=== PATIENT | male | born 1940 | race Caucasian/White ===

== ENCOUNTER 2017-12-06 09:28 | Observation (INO) ==
[2017-12-06] MEDS ORDERED: Aspirin 81 MG TAB.CHEW PO ONE (09:45)
[2017-12-06] MEDS ORDERED: 0.9 % Sodium Chloride 500 ML IVC ONE ×2 (09:45→11:24)
[2017-12-06] MEDS ORDERED: *HR* Morphine 2 MG/ML SYRINGE IVP ONE ×2 (09:54→10:38)
--- NOTE | 2017-12-06 09:55 | Emergency Department Note ---
Disposition Clinical Impression: Angina at rest, Dizziness, nonspecific Chest pain Qualifiers: Chest pain type: unspecified Qualified Code(s): R07.9 - Chest pain, unspecified Disposition: Admitted As Inpatient Condition: Undetermined Time of Disposition: 17:36 Chest Pain HPI - General Chief Complaint: ED Chest Pain Stated Complaint: CHEST PAIN/MCKEON Time Seen by Provider: 12/06/17 09:45 Source: patient, family Mode of arrival: ambulatory Limitations: no limitations Vital Signs Reviewed: Yes Nursing Notes Reviewed: Yes - History of Present Illness HPI Narrative: Presents with left sided chest pain with radiation up neck that started yesterday that has progressively gotten worse. Pt states was sitting in chair when chest pain started, had not been exerting self. Pain is constant, initiating in Left chest than radiating to left neck/shoulder. Hx of 12 stents, 16 PCIs, CABG x1. Denies recent or current illness. Denies n/v, diaphoresis, increased edema, abdominal bloating, or other ailments. Pt complaint: chest pain Onset (ago): day(s) (1) Duration: constant, gradually worsening Onset: during rest Pain Location: left chest, other (radiating to left shoulder) Severity: moderate Severity scale (1-10): 5 Quality: aching, heaviness, similar to prior AK ("know it is heart") Pain Radiation: LUE, neck Improves with: nothing Worsens with: nothing Context: other (extensive cardiac history) Associated symptoms: Denies: nausea, vomiting, diaphoresis, dyspnea, syncope, palpitations, fever, cough, leg swelling Treatments prior to arrival chest pain: none - Related Data Home Medications Medication Instructions Recorded Confirmed Clopidogrel [Plavix] 75 mg PO QAM 07/23/15 12/06/17 Docusate [Colace] 100 mg PO QAM PRN 07/23/15 12/06/17 Gabapentin [Neurontin] 300 mg PO TID 07/23/15 12/06/17 Multivitamin/Iron/Folic Acid 1 tab PO QAM 07/23/15 12/06/17 [Centrum Complete Multivit Tab] Nitroglycerin [Nitrostat] 0.4 mg SL AD PRN 07/23/15 12/06/17 Pantoprazole Sodium 40 mg PO QAM 07/23/15 12/06/17 Atorvastatin [Lipitor] 40 mg PO HS 05/16/16 12/06/17 Glimepiride [Amaryl] 8 mg PO DAILY 05/16/16 12/06/17 Losartan Potassium [Cozaar] 100 mg PO DAILY 05/16/16 12/06/17 Metformin HCl [Glucophage] 1,000 mg PO BIDWM 05/16/16 12/06/17 Metoprolol Succinate 200 mg PO QAM 05/16/16 12/06/17 Potassium Chloride [K-Tab ER] 10 meq PO DAILY 05/16/16 12/06/17 Lamivudine [Epivir Hbv] 100 mg PO DAILY 12/06/17 12/06/17 Warfarin [Coumadin] 2.5 mg PO MOWEFRSA@1800 12/06/17 12/06/17 Warfarin [Coumadin] 5 mg PO SUTUTH@1800 12/06/17 12/06/17 Previous Rx's Medication Instructions Recorded Isosorbide MONOnitrate (24 HR) 90 mg PO DAILY #30 tab.er.24h 01/01/16 [Imdur] Furosemide [Lasix] 80 mg PO BID #6 tab 02/22/16 amLODIPine [Norvasc] 10 mg PO DAILY #60 tablet 05/18/16 Allergies Allergy/AdvReac Type Severity Reaction Status Date / Time No Known Allergies Allergy Verified 07/23/15 17:25 All systems ED: reviewed and negative except as stated. Review of Systems: As Per HPI Constitutional: Reports: weakness. Denies: fever, chills Cardiovascular: Reports: chest pain, edema. Denies: palpitations, dyspnea on exertion, orthopnea, syncope Respiratory: Denies: cough, wheezes Gastrointestinal: Denies: abdominal pain, nausea, vomiting Chest Pain PMH - Past Medical History Medical history: Reports: cardiomyopathy, coronary artery disease, diabetes, hyperlipidemia, hypertension Surgical history: Reports: angioplasty/stent (12 stents), cataract, coronary bypass (CABG), pacemaker/AICD Psychiatric history: Reports: no psych history - Social History Smoking Status: Never smoker Alcohol use: Reports: none Drug use: Reports: none Physical Exam - General Limitations: no limitations General appearance: alert - Head Head exam: normocephalic - Neck Neck exam: Present: normal inspection, full ROM, trachea midline - Chest Chest inspection: Present: normal inspection, symmetric chest wall rise - Respiratory Respiratory exam: Present: normal lung sounds bilaterally. Absent: respiratory distress, accessory muscle use, prolonged expiratory phase - Cardiovascular Cardiovascular exam: Present: regular rate, normal rhythm, normal heart sounds - Abdominal Exam Abdominal exam: Present: soft, Non-Tender, normal bowel sounds - Extremities Exam Extremities exam: Present: normal inspection, full ROM, normal capillary refill , other (BLE edema 1+) - Neurological Exam Neurological exam: Present: alert, oriented X3, CN II-XII intact, normal gait - Psychiatric Psychiatric exam: Present: normal affect, normal mood - Skin Skin exam: Present: warm, intact, normal color Course Course Narrative: 77 year old male presents to ED with 1 day history of chest pain. Chest pain began while sitting in chair, has progressively gotten worse through night and now presents with left substernal chest pain with radiation to left neck and shoulder, pain has always been constant without aggravating or alleviating factors. Pt with extensive heart history that includes CAD, PCI x 16 with 12 stents, 1 CABG, previous "multiple" AK's. 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 Trujillo at [facility]. Does not take daily aspirin d/t coumadin use. Pt denies diaphoresis n/v/d, abdominal bloating, abdominal complaints, recent or current illness. States "know it's my heart". Pt has had intermittent angina before with self resolution and also has nitro available at home. Previous admissions for dizziness/angina. Pt states this is worse than normal because "it doesn't go away and is getting worse". - Reevaluation(s) Reevaluation #1: Resting quietly in room with family at bedside. States CP is 5/10 on scale. Now complaining of headache to forehead that radiates to back of head particularly on left side. States headache has been intermittent last 2 weeks and had treated with tylenol, pt states along with headache feels light headed and dizzy when standing frequently especially when "headache is bad". States chest pain seems to exacerbate headache as well. Saw PCP during this time who suggested headache be related to new medication for Hep B and was told to increase fluids. Pt with admission in May 2016 at [place] for almost same presentation. Pt asked if symptoms (headache, dizziness) were similiar to last admission which he states they are. Admission documentation felt pt to be vascularly dry causing the headaches and dizziness due to poor po intake as well as lasix use. Time: 10:37 Reevaluation #2: Pt continues to complain of chest pain, nitro effective in making pain go from 8 /10 to 5/10. Continues to rest quietly in room with family at bedside. Pt case discussed with Dr. Rangel for admission to hospitalist services. Pt agrees with admission. Time: 11:40 Vital Signs Temperature 97.6 F 12/06/17 09:34 Pulse Rate 60 12/06/17 09:34 Respiratory Rate 18 12/06/17 09:34 Blood Pressure 132/68 12/06/17 09:34 O2 Sat by Pulse Oximetry 97 12/06/17 09:34 Temperature 97.5 F L 12/06/17 16:41 Pulse Rate 58 12/06/17 16:41 Respiratory Rate 16 12/06/17 16:41 Blood Pressure 160/79 12/06/17 16:41 O2 Sat by Pulse Oximetry 96 12/06/17 16:50 Oxygen Delivery Oxygen Delivery Room Air Chest Pain - MDM Narrative Medical decision making narrative: 77 year old male presents to ED with 1 day history of chest pain. Chest pain began while sitting in chair, has progressively gotten worse through night and now presents with left substernal chest pain with radiation to left neck and shoulder, pain has always been constant without aggravating or alleviating factors. Pt with extensive heart history that includes CAD, PCI x 16 with 12 stents, 1 CABG, previous "multiple" AK's. 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 Trujillo at [facility]. Does not take daily aspirin d/t coumadin use. Pt denies diaphoresis n/v/d, abdominal bloating, abdominal complaints, recent or current illness. States "know it's my heart" Last INR 2.2 per patient a "couple of months ago" PMH includes CAD, HTN, HLD, NIDDM, ischemic cardiomyopathy, HBV. Pt reports CKDIII from PCP not too long ago EKG without ST elevation/depression, electrical pacer reading. Paced rate controlled at 60bpm Differentials at this time: NSTEMI, Unstable Angina. Less likely PE d/t anticoagulation wiht coumadin, systemic illness, no recent illness, AAA- no radiation to back, no history of AAA. Initial labs/testing to be completed the re-evaluate Re-eval Resting quietly in room with family at bedside. States CP is 5/10 on scale. Now complaining of headache to forehead that radiates to back of head particularly on left side. States headache has been intermittent last 2 weeks and had treated with tylenol, pt states along with headache feels light headed and dizzy when standing frequently especially when "headache is bad". States chest pain seems to exacerbate headache as well. Saw PCP during this time who suggested headache be related to new medication for Hep B and was told to increase fluids. Pt with admission in May 2016 at [place] for almost same presentation. Pt asked if symptoms (headache, dizziness) were similiar to last admission which he states they are. Admission documentation felt pt to be vascularly dry causing the headaches and dizziness due to poorer po intake as well as lasix use. Labs from today shows increased Cr with decreased GFR to 30 (previous 60); NA 139, K+ 4.0, glucose 185. Trop negative, BNP 194, Lipase 90, INR 2.5 . Heart score 7. CXR negative. Pt with worsening renal function, continuing chest pain, headache. Plan to admit for CP r/o. Discussed case with Attending Dr. Osborne who had 1:1 face time with patient, agrees with POC. - Differential Diagnosis Likely: unstable angina pectoris, atypical chest pain, st elevation myocardial infraction - Medical Records Medical records reviewed: Yes I reviewed the patient's medical records. - Lab Data Lab results reviewed: Yes I reviewed the patient's lab results. Result diagrams: 12/06/17 09:54 12/06/17 09:54 Lab Results 12/06/17 12/06/17 12/06/17 Range/Units 09:54 09:54 09:54 WBC 3.9 L (4.3-11.1) K/mcL RBC 3.54 L (4.19-5.50) M/mcL Hgb 11.1 L (12.9-16.9) g/dL Hct 33.1 L (37.5-50.1) % MCV 93.5 (83.0-100.0) fL MCH 31.4 (28.0-33.3) pg MCHC 33.5 (31.6-35.5) g/dL RDW 14.0 (11.5-14.5) % Plt Count 114 L (140-400) K/mcL MPV 11.7 (9.4-12.4) fL Immature Gran % 0.3 (0-4) % Seg Neutrophils % 59.2 % Lymphocytes % 27.0 % Monocytes % 10.4 % Eosinophils % 3.1 % Basophils % 0.0 % Neutrophils # 2.3 (1.6-8.9) K/mcL Lymphocytes # 1.1 (0.6-4.6) K/mcL Monocytes # 0.4 (0.0-1.3) K/mcL Eosinophils # 0.1 (0.0-0.6) K/mcL Basophils # 0.0 (0.0-0.2) K/mcL PT 27.1 H (9.4-12.1) Seconds INR 2.5 APTT 39.0 H (26.0-36.0) Seconds Sodium (136-145) mEq/L Potassium (3.5-5.1) mEq/L Chloride (98-107) mEq/L Carbon Dioxide (23-29) mEq/L BUN (8-23) mg/dL Creatinine (0.70-1.30) mg/dL Est GFR ( Amer) (> 60) Est GFR (Non-Af Amer) (> 60) BUN/Creatinine Ratio (6-26) Glucose (70-105) mg/dL Calculated Osmolality (280-300) Calcium (8.6-10.3) mg/dL Total Bilirubin (0.3-1.0) mg/dL Direct Bilirubin (0.0-0.2) mg/dL Indirect Bilirubin (0.0-1.2) mg/dL AST (13-39) Units/L ALT (7-52) Units/L Alkaline Phosphatase (34-104) Units/L Troponin I (< 0.04) ng/mL B-Natriuretic Peptide 194 H (Less than 100) pg/mL Serum Total Protein (6.4-8.9) g/dL Albumin (3.5-5.7) g/dL Globulin (2.4-3.5) g/dL Albumin/Globulin Ratio (1.1-2.2) Lipase (11-82) Units/L 12/06/17 12/06/17 12/06/17 Range/Units 09:54 09:54 12:10 WBC (4.3-11.1) K/mcL RBC (4.19-5.50) M/mcL Hgb (12.9-16.9) g/dL Hct (37.5-50.1) % MCV (83.0-100.0) fL MCH (28.0-33.3) pg MCHC (31.6-35.5) g/dL RDW (11.5-14.5) % Plt Count (140-400) K/mcL MPV (9.4-12.4) fL Immature Gran % (0-4) % Seg Neutrophils % % Lymphocytes % % Monocytes % % Eosinophils % % Basophils % % Neutrophils # (1.6-8.9) K/mcL Lymphocytes # (0.6-4.6) K/mcL Monocytes # (0.0-1.3) K/mcL Eosinophils # (0.0-0.6) K/mcL Basophils # (0.0-0.2) K/mcL PT (9.4-12.1) Seconds INR APTT (26.0-36.0) Seconds Sodium 139 (136-145) mEq/L Potassium 4.0 (3.5-5.1) mEq/L Chloride 105 (98-107) mEq/L Carbon Dioxide 28 (23-29) mEq/L BUN 32 H (8-23) mg/dL Creatinine 2.14 H (0.70-1.30) mg/dL Est GFR ( Amer) 37 L (> 60) Est GFR (Non-Af Amer) 30 L (> 60) BUN/Creatinine Ratio 15 (6-26) Glucose 185 H (70-105) mg/dL Calculated Osmolality 300 (280-300) Calcium 9.1 (8.6-10.3) mg/dL Total Bilirubin 0.5 (0.3-1.0) mg/dL Direct Bilirubin 0.1 (0.0-0.2) mg/dL Indirect Bilirubin 0.4 (0.0-1.2) mg/dL AST 21 (13-39) Units/L ALT 21 (7-52) Units/L Alkaline Phosphatase 58 (34-104) Units/L Troponin I < 0.03 < 0.03 (< 0.04) ng/mL B-Natriuretic Peptide (Less than 100) pg/mL Serum Total Protein 6.7 (6.4-8.9) g/dL Albumin 4.0 (3.5-5.7) g/dL Globulin 2.7 (2.4-3.5) g/dL Albumin/Globulin Ratio 1.5 (1.1-2.2) Lipase 90 H (11-82) Units/L // Range/Units 12:10 WBC (4.3-11.1) K/mcL RBC (4.19-5.50) M/mcL Hgb (12.9-16.9) g/dL Hct (37.5-50.1) % MCV (83.0-100.0) fL MCH (28.0-33.3) pg MCHC (31.6-35.5) g/dL RDW (11.5-14.5) % Plt Count (140-400) K/mcL MPV (9.4-12.4) fL Immature Gran % (0-4) % Seg Neutrophils % % Lymphocytes % % Monocytes % % Eosinophils % % Basophils % % Neutrophils # (1.6-8.9) K/mcL Lymphocytes # (0.6-4.6) K/mcL Monocytes # (0.0-1.3) K/mcL Eosinophils # (0.0-0.6) K/mcL Basophils # (0.0-0.2) K/mcL PT 28.9 H (9.4-12.1) Seconds INR 2.6 APTT (26.0-36.0) Seconds Sodium (136-145) mEq/L Potassium (3.5-5.1) mEq/L Chloride (98-107) mEq/L Carbon Dioxide (23-29) mEq/L BUN (8-23) mg/dL Creatinine (0.70-1.30) mg/dL Est GFR ( Amer) (> 60) Est GFR (Non-Af Amer) (> 60) BUN/Creatinine Ratio (6-26) Glucose (70-105) mg/dL Calculated Osmolality (280-300) Calcium (8.6-10.3) mg/dL Total Bilirubin (0.3-1.0) mg/dL Direct Bilirubin (0.0-0.2) mg/dL Indirect Bilirubin (0.0-1.2) mg/dL AST (13-39) Units/L ALT (7-52) Units/L Alkaline Phosphatase (34-104) Units/L Troponin I (< 0.04) ng/mL B-Natriuretic Peptide (Less than 100) pg/mL Serum Total Protein (6.4-8.9) g/dL Albumin (3.5-5.7) g/dL Globulin (2.4-3.5) g/dL Albumin/Globulin Ratio (1.1-2.2) Lipase (11-82) Units/L - Radiology Data Radiology results reviewed: Yes I reviewed the patient's radiology results. All Lab Results (24 Hours) 12/06/17 12/06/17 12/06/17 Range/Units 09:54 09:54 09:54 WBC 3.9 L (4.3-11.1) K/mcL RBC 3.54 L (4.19-5.50) M/mcL Hgb 11.1 L (12.9-16.9) g/dL Hct 33.1 L (37.5-50.1) % MCV 93.5 (83.0-100.0) fL MCH 31.4 (28.0-33.3) pg MCHC 33.5 (31.6-35.5) g/dL RDW 14.0 (11.5-14.5) % Plt Count 114 L (140-400) K/mcL MPV 11.7 (9.4-12.4) fL Immature Gran % 0.3 (0-4) % Seg Neutrophils % 59.2 % Lymphocytes % 27.0 % Monocytes % 10.4 % Eosinophils % 3.1 % Basophils % 0.0 % Neutrophils # 2.3 (1.6-8.9) K/mcL Lymphocytes # 1.1 (0.6-4.6) K/mcL Monocytes # 0.4 (0.0-1.3) K/mcL Eosinophils # 0.1 (0.0-0.6) K/mcL Basophils # 0.0 (0.0-0.2) K/mcL PT 27.1 H (9.4-12.1) Seconds INR 2.5 APTT 39.0 H (26.0-36.0) Seconds Sodium (136-145) mEq/L Potassium (3.5-5.1) mEq/L Chloride (98-107) mEq/L Carbon Dioxide (23-29) mEq/L BUN (8-23) mg/dL Creatinine (0.70-1.30) mg/dL Est GFR ( Amer) (> 60) Est GFR (Non-Af Amer) (> 60) BUN/Creatinine Ratio (6-26) Glucose (70-105) mg/dL Calculated Osmolality (280-300) Calcium (8.6-10.3) mg/dL Total Bilirubin (0.3-1.0) mg/dL Direct Bilirubin (0.0-0.2) mg/dL Indirect Bilirubin (0.0-1.2) mg/dL AST (13-39) Units/L ALT (7-52) Units/L Alkaline Phosphatase (34-104) Units/L Troponin I (< 0.04) ng/mL B-Natriuretic Peptide 194 H (Less than 100) pg/mL Serum Total Protein (6.4-8.9) g/dL Albumin (3.5-5.7) g/dL Globulin (2.4-3.5) g/dL Albumin/Globulin Ratio (1.1-2.2) Lipase (11-82) Units/L 12/06/17 12/06/17 Range/Units 09:54 09:54 WBC (4.3-11.1) K/mcL RBC (4.19-5.50) M/mcL Hgb (12.9-16.9) g/dL Hct (37.5-50.1) % MCV (83.0-100.0) fL MCH (28.0-33.3) pg MCHC (31.6-35.5) g/dL RDW (11.5-14.5) % Plt Count (140-400) K/mcL MPV (9.4-12.4) fL Immature Gran % (0-4) % Seg Neutrophils % % Lymphocytes % % Monocytes % % Eosinophils % % Basophils % % Neutrophils # (1.6-8.9) K/mcL Lymphocytes # (0.6-4.6) K/mcL Monocytes # (0.0-1.3) K/mcL Eosinophils # (0.0-0.6) K/mcL Basophils # (0.0-0.2) K/mcL PT (9.4-12.1) Seconds INR APTT (26.0-36.0) Seconds Sodium 139 (136-145) mEq/L Potassium 4.0 (3.5-5.1) mEq/L Chloride 105 (98-107) mEq/L Carbon Dioxide 28 (23-29) mEq/L BUN 32 H (8-23) mg/dL Creatinine 2.14 H (0.70-1.30) mg/dL Est GFR ( Amer) 37 L (> 60) Est GFR (Non-Af Amer) 30 L (> 60) BUN/Creatinine Ratio 15 (6-26) Glucose 185 H (70-105) mg/dL Calculated Osmolality 300 (280-300) Calcium 9.1 (8.6-10.3) mg/dL Total Bilirubin 0.5 (0.3-1.0) mg/dL Direct Bilirubin 0.1 (0.0-0.2) mg/dL Indirect Bilirubin 0.4 (0.0-1.2) mg/dL AST 21 (13-39) Units/L ALT 21 (7-52) Units/L Alkaline Phosphatase 58 (34-104) Units/L Troponin I < 0.03 (< 0.04) ng/mL B-Natriuretic Peptide (Less than 100) pg/mL Serum Total Protein 6.7 (6.4-8.9) g/dL Albumin 4.0 (3.5-5.7) g/dL Globulin 2.7 (2.4-3.5) g/dL Albumin/Globulin Ratio 1.5 (1.1-2.2) Lipase 90 H (11-82) Units/L Heart Score - Score History: Highly Suspicious EKG: Normal Age: Greater than 65 Risk Factors: Equal/Greater than 3 risk factor or history of atherosclerotic disease Troponin: 1-3x normal limit HEART Score Total: 7
[2017-12-06 10:08] LABS: Eosinophils # 0.1 K/mcL (0.0-0.6); Eosinophils % 3.1 %; Hematocrit 33.1 % (37.5-50.1); Hemoglobin 11.1 g/dL (12.9-16.9); Immature Granulocytes % 0.3 % (0-4); Lymphocytes # 1.1 K/mcL (0.6-4.6); Mean Corpuscular HGB Conc 33.5 g/dL (31.6-35.5); Mean Corpuscular Hemoglobin 31.4 pg (28.0-33.3); Mean Corpuscular Volume 93.5 fL (83.0-100.0); Mean Platelet Volume 11.7 fL (9.4-12.4); Monocytes # 0.4 K/mcL (0.0-1.3); Monocytes % 10.4 %; Neutrophils # 2.3 K/mcL (1.6-8.9); Platelet Count 114 K/mcL (140-400); Red Blood Count 3.54 M/mcL (4.19-5.50); Segmented Neutrophils % 59.2 %
[2017-12-06 10:13] LABS: INR 2.5; Prothrombin Time 27.1 Seconds (9.4-12.1)
[2017-12-06 10:25] LABS: Albumin/Globulin Ratio 1.5 (1.1-2.2); Bilirubin,Direct 0.1 mg/dL (0.0-0.2); Bilirubin,Indirect 0.4 mg/dL (0.0-1.2); Bilirubin,Total 0.5 mg/dL (0.3-1.0); Calcium 9.1 mg/dL (8.6-10.3); Globulin 2.7 g/dL (2.4-3.5); Total Protein 6.7 g/dL (6.4-8.9)
[2017-12-06] MEDS: Nitroglycerin 0.4 MG TAB.SUBL SL ONE ×2 (10:30→11:21)
--- NOTE | 2017-12-06 11:48 | Emergency Department Note ---
START Narrative - START START: I examined this patient and my medical decision-making was reviewed with the FRAME REPAIRER/PA/Advanced Practice Nurse/Resident Physician. I agree with the documented findings, disposition and treatment plan as described except to the extent set forth below. I did see the patient spoke with them in the family. Does have chest pain started yesterday. No pleuritic aspect. Does radiate to the back which is not new compared to his baseline chest pain. He does have an extensive cardiac history. I did review the EKG. The patient will be admitted 1147
[2017-12-06] MEDS ORDERED: Ondansetron 4 MG/2 ML VIAL IVP PRN (11:53)
[2017-12-06] MEDS ORDERED: Naloxone 0.4 MG/ML INJ IVP PRN (11:53)
[2017-12-06] MEDS ORDERED: Dextrose Gel 15 GM/37.5 ML TUBE PO PRN ×2 (11:57)
[2017-12-06] MEDS ORDERED: D5% in Water 1,000 ML IVC PRN (11:57)
[2017-12-06] MEDS ORDERED: *HR* Dextrose 50 % in Water (Syg) 50 ML SYRINGE IVP PRN (11:57)
[2017-12-06] MEDS ORDERED: 0.9 % Sodium Chloride 1,000 ML IVC SCH (12:00)
[2017-12-06 13:15] LABS: INR 2.6; Prothrombin Time 28.9 Seconds (9.4-12.1)
--- NOTE | 2017-12-06 13:27 | Internal Med History&Physical ---
Date of Encounter: 12/06/17 Time of Encounter: 13:26 Assessment and Plan (1) Irqyi-ry-dyttdag kidney injury Current visit: Yes Status: Acute known CKD III Now with ALBA Pre-renal/intrinsic, non-oliguric, possibly due to medications as well Hold ARB/lasix Continue gentle hydration Obtain UA/Urine urea as well as urine sodium Obtain renal USS to r/o post-renal causes Strict I/O Avoid nephrotoxins Qualifiers: Acute renal failure type: unspecified Chronic kidney disease stage: stage 3 (moderate) Qualified Code(s): N17.9 - Acute kidney failure, unspecified; N18.3 - Chronic kidney disease, stage 3 (moderate); N18.3 - Chronic kidney disease, stage 3 (moderate) (2) Chest pain Current visit: Yes Status: Acute Initial EKG and trop unremarkable Significant cardiac history with typical chest pain Cycle troponin Obtain ECHO Consult cardiology depending on results Continue home meds -ASA/Lipitor/Isosobide/Plavix/BB. Hold ARB for ALBA on CKD Qualifiers: Chest pain type: unspecified Qualified Code(s): R07.9 - Chest pain, unspecified (3) Diabetes Current visit: Yes Status: Chronic hold metformin SSI FS ACHS ADa diet Qualifiers: Diabetes mellitus type: type 2 Diabetes mellitus complication status: with kidney complications Diabetes mellitus complication detail: with chronic kidney disease Diabetes mellitus jail insulin use: without jail use Chronic kidney disease stage: stage 3 (moderate) Qualified Code(s): E11.22 - Type 2 diabetes mellitus with diabetic chronic kidney disease; N18.3 - Chronic kidney disease, stage 3 (moderate); N18.3 - Chronic kidney disease, stage 3 (moderate) (4) Ischemic cardiomyopathy Current visit: Yes Status: Chronic with ICD Continue home meds (5) Hypertension Current visit: Yes Status: Chronic controlled for now Continue home meds Qualifiers: Hypertension type: essential hypertension Qualified Code(s): I10 - Essential (primary) hypertension (6) CAD (coronary artery disease) Current visit: Yes Status: Chronic as in chest pain Qualifiers: Coronary Disease-Associated Artery/Lesion type: [place] artery [place] vs. transplanted heart: [place] heart Associated angina: with other forms of angina Qualified Code(s): I25.118 - Atherosclerotic heart disease of [place] coronary artery with other forms of angina pectoris (7) DVT prophylaxis Current visit: Yes Status: Acute on warfarin, INR is therapeutic (8) HLD (hyperlipidemia) Current visit: Yes Status: Chronic continue home meds Qualifiers: Hyperlipidemia type: unspecified Qualified Code(s): E78.5 - Hyperlipidemia , unspecified (9) Afib Current visit: Yes Status: Chronic HR controlled, continue BB INR therapeutic, continue Warfarin, pharm to dose with PT/INR Qualifiers: Atrial fibrillation type: chronic Qualified Code(s): I48.2 - Chronic atrial fibrillation Internal Medicine - H&P: HPI Chief complaint: chest pain Admitted From: Home Plans for Post Hospital Care: Home History of present illness: Mr. Last is a 77 year old male with CAD s/p CABG/Multiple stents, ischemic CMP with ICD, Afib on warfarin, DM, HTN, CKD III He presented to the ER with complains of one day history of chest pain occurring at rest, said to feel "heavy like when I had m heart attacks", radiating to his left neck and moderately severe , pain is constant and has been relieved with medications in the ER, he states it wasn't relieved with his home dose of NTG. No known aggravating factors. He denies associated nausea, vomiting, diaphoresis, SOB. He denies neurologic, abdominal or urologic symptoms Patient's work up was significant for significant acute on chronic kidney injury , EKG was unremarkable for St segment changes, Trop was negative initially. CXR is unremarkable for any acute findings Due to patient's cardiac history and multiple risk factors,as well as new diagnosis of ALBA, he will be admitted inpatient for work up and management of ALBA on CKD, as well as Chest pain r/o ACS Past Med Surg Social Fam HX - Past Medical History Medical history: cardiomyopathy, coronary artery disease, diabetes, hyperlipidemia, hypertension Psychiatric history: no psych history - Past Surgical History Surgical History: angioplasty/stent (12 stents), cataract, coronary bypass (CABG ), pacemaker/AICD - Social History Smoking Status: Never smoker Smokeless Tobacco Status: No Alcohol use: none Drug use: none - Family History Father Adopted: No Family Member Ethnicity: Non- Living Status: Hx Family Cardiac Disorders: Yes Hx Family Respiratory Disorders: No Hx Family Cancer: Yes Hx Family GI Disorders: No Hx Family Endocrine Disorder: Yes Hx Family Neuromuscular Disorders: No Hx Family Neurologic Disorders: Yes Hx Family HEENT Disorders: No Hx Family Autoimmune Disorders: No Internal Medicine - H&P: Meds Clopidogrel [Plavix] 75 mg PO QAM 07/23/15 [History] Docusate [Colace] 100 mg PO QAM PRN 07/23/15 [History] Gabapentin [Neurontin] 300 mg PO TID 07/23/15 [History] Multivitamin/Iron/Folic Acid [Centrum Complete Multivit Tab] 1 tab PO QAM [History] Nitroglycerin [Nitrostat] 0.4 mg SL AD PRN 07/23/15 [History] Pantoprazole Sodium 40 mg PO QAM 07/23/15 [History] Isosorbide MONOnitrate (24 HR) [Imdur] 90 mg PO DAILY #30 tab.er.24h 01/01/16 [ Rx] Furosemide [Lasix] 80 mg PO BID #6 tab 02/22/16 [Rx] Atorvastatin [Lipitor] 40 mg PO HS 05/16/16 [History] Glimepiride [Amaryl] 8 mg PO DAILY 05/16/16 [History] Losartan Potassium [Cozaar] 100 mg PO DAILY 05/16/16 [History] Metformin HCl [Glucophage] 1,000 mg PO BIDWM 05/16/16 [History] Metoprolol Succinate 200 mg PO QAM 05/16/16 [History] Potassium Chloride [K-Tab ER] 10 meq PO DAILY 05/16/16 [History] amLODIPine [Norvasc] 10 mg PO DAILY #60 tablet 05/18/16 [Rx] Lamivudine [Epivir Hbv] 100 mg PO DAILY 12/06/17 [History] Warfarin [Coumadin] 2.5 mg PO MOWEFRSA@1800 12/06/17 [History] Warfarin [Coumadin] 5 mg PO SUTUTH@1800 12/06/17 [History] 3 Allergy/AdvReac Type Severity Reaction Status Date / Time No Known Allergies Allergy Verified 07/23/15 17:25 All Systems PM: A 10-system review of systems was performed and is negative for pertinent findings except as documented above in the HPI. - Constitutional Constitutional: no chills, no fever(s), no night sweats - EENT Eyes: no change in vision, no discharge, no pain, no photophobia Ears: no ear discharge, no ear pain, no tinnitus Nose, mouth and throat: no dysphagia, no nasal discharge, no neck pain, no sore throat - Cardiovascular Cardiovascular ROS IM: as per HPI - Respiratory Respiratory: as per HPI - Gastrointestinal Gastrointestinal: as per HPI - Musculoskeletal Musculoskeletal ROS IM: as per HPI - Integumentary Integumentary IM: no rash, no unusual bruising - Neurological Neurological ROS: no confusion, no convulsions, no focal weakness, no numbness, no tingling, no tremor(s) - Hematologic/Lymphatic Hematologic/Lymphatic: no easy bruising - Constitutional Vitals: Temp Pulse Resp BP Pulse Ox 97.6 F 60 16 126/76 94 12/06/17 09:34 12/06/17 11:21 12/06/17 11:21 12/06/17 11:21 12/06/17 11:21 General appearance: Present: A&O X 3, pleasant, no acute distress, obese - Head Head exam: Present: atraumatic, normocephalic - Eye Eye exam: Present: PERRL, conjuntiva pink, sclera anicteric Pupils: Present: PERRL - Neck Neck exam general surgery: Present: supple, trachea midline. Absent: lymphadenopathy - Respiratory Respiratory exam: Present: CTAB. Absent: accessory muscle use, rales, rhonchi, wheezes - Cardiovascular Cardiovascular exam: Present: RRR, +S1, +S2. Absent: diastolic murmur, gallop, rubs, systolic murmur - GI/Abdominal GI/Abdominal exam: Present: normal bowel sounds, soft, no peritoneal signs. Absent: distended, tenderness - Extremities Exam Extremities exam: Present: warm, radial pulses palpable and symmetrical. Absent : calf tenderness, cyanotic, pedal edema - Neurological Exam Neurological exam: Present: alert, CN II-XII intact, oriented X3, no focal deficits. Absent: pronater drift, facial droop, speech deficit - Skin Skin exam: Present: dry, intact Internal Med - H&P Results - Labs CBC & Chem 7: 12/06/17 09:54 12/06/17 09:54 Labs: Short CBC 12/06/17 Range/Units 09:54 WBC 3.9 L (4.3-11.1) K/mcL Hgb 11.1 L (12.9-16.9) g/dL Hct 33.1 L (37.5-50.1) % Plt Count 114 L (140-400) K/mcL Neutrophils # 2.3 (1.6-8.9) K/mcL BMP 12/06/17 09:54 Sodium 139 Potassium 4.0 Chloride 105 Carbon Dioxide 28 BUN 32 H Creatinine 2.14 H Glucose 185 H Calcium 9.1 Cardiac Enzymes 12/06/17 12/06/17 Range/Units 09:54 12:10 Troponin I < 0.03 < 0.03 (< 0.04) ng/mL Liver Function 12/06/17 Range/Units 09:54 Total Bilirubin 0.5 (0.3-1.0) mg/dL Direct Bilirubin 0.1 (0.0-0.2) mg/dL AST 21 (13-39) Units/L ALT 21 (7-52) Units/L Alkaline Phosphatase 58 (34-104) Units/L Albumin 4.0 (3.5-5.7) g/dL - Impressions ITS Impressions Chest X-Ray 12/06/17 09:46 IMPRESSION: No acute process. D/ / Tommy Schaeffer MD / Tommy Schaeffer MD Interpreting Provider: Tommy Schaeffer MD
[2017-12-06] MEDS: *HR* HYDROcodone/Acet 5/325 mg TABLET PO PRN ×2 (13:38→21:16)
[2017-12-06] MEDS: Gabapentin 300 MG CAPSULE PO SCH ×2 (17:07→21:14)
[2017-12-06] MEDS: Insulin LISPRO 300 UNITS/3 ML VIAL SQ SCH ×2 (17:52→21:14)
[2017-12-06] MEDS ORDERED: *HR* Warfarin 2.5 MG TABLET PO SCH (18:00)
[2017-12-06] MEDS ORDERED: Warfarin perPT PO PRN (18:00)
[2017-12-06] MEDS ORDERED: *HR* Warfarin 5 MG TABLET PO SCH (18:00)
[2017-12-06 18:35] LABS: Bilirubin,Urine Negative (Negative); Blood,Urine Negative (Negative); Clarity,Urine Clear (Clear); Color,Urine Yellow (Yellow); Glucose,Urine (UA) Normal (Normal); Ketones,Urine Negative (Negative); Leukocyte Esterase,Urine Negative (Negative); Nitrite,Urine Negative (Negative); Protein,Urine Negative (Neg-Trace); Specific Gravity,Urine 1.005 (1.010-1.025); Urobilinogen,Urine Normal (Normal)
[2017-12-06 19:18] LABS: Sodium, Urine 55.9 mEq/L
[2017-12-07 04:43] LABS: Eosinophils # 0.1 K/mcL (0.0-0.6); Eosinophils % 3.5 %; Hematocrit 30.6 % (37.5-50.1); Hemoglobin 10.2 g/dL (12.9-16.9); Immature Granulocytes % 0.3 % (0-4); Lymphocytes % 29.9 %; Mean Corpuscular HGB Conc 33.3 g/dL (31.6-35.5); Mean Corpuscular Hemoglobin 31.2 pg (28.0-33.3); Mean Corpuscular Volume 93.6 fL (83.0-100.0); Mean Platelet Volume 11.6 fL (9.4-12.4); Monocytes # 0.3 K/mcL (0.0-1.3); Platelet Count 109 K/mcL (140-400); Red Blood Count 3.27 M/mcL (4.19-5.50); Red Cell Distribution Width 14.1 % (11.5-14.5); Segmented Neutrophils % 57.3 %
[2017-12-07 04:51] LABS: Calcium 8.5 mg/dL (8.6-10.3); Potassium 3.8 mEq/L (3.5-5.1)
[2017-12-07 05:11] LABS: INR 2.7; Prothrombin Time 29.2 Seconds (9.4-12.1)
[2017-12-07] MEDS: Insulin LISPRO 300 UNITS/3 ML VIAL SQ SCH ×4 (07:53→21:55)
[2017-12-07] MEDS ORDERED: Isosorbide MONOnitrate (24 HR) 30 MG TAB.ER.24H PO SCH (09:00)
--- NOTE | 2017-12-07 09:01 | Electrocardiograph Report ---
[facility] Test Date: 2017-12-06 Pat Name: Salvador Last Department: 102 Room: [facility] Gender: M [employer]: : 1940 Requested By: Tommy Osborne Order Number: [id number] Reading MD: Jeremías Clements MD Measurements Intervals [place] Rate: 60 P: [place]: 0 QRS: -73 QRSD: 181 T: 87 QT: 475 QTc: 475 Interpretive Statements ELECTRONIC VENTRICULAR PACEMAKER ABNORMAL RHYTHM ECG WARNING: DATA QUALITY MAY AFFECT INTERPRETATION Electronically Signed On 12-07-2017 8:59:29 EST by Jeremías Clements MD
[2017-12-07] MEDS: amLODIPine 5 MG TABLET PO SCH (09:39)
[2017-12-07] MEDS: Metoprolol XL (24 HR) Succ 50 MG TAB.ER.24H PO SCH (09:39)
[2017-12-07] MEDS: Multivit/Ca/Min/Fe/FA 1 TAB TABLET PO SCH (09:40)
[2017-12-07] MEDS: Gabapentin 300 MG CAPSULE PO SCH ×3 (09:40→19:35)
--- NOTE | 2017-12-07 11:45 | Internal Med Progress Note ---
Date of Encounter: 12/07/17 Time of Encounter: 10:30 - Assessment and plan (1) Chest pain Current Visit: Yes Status: Acute Assessment and plan: So far negative Trop No acute ischemic changes on EKG does have multiple PVC's on monitor cont Metoprolol + Imdur Held ARB's will start him on ASA Echo showed LVEF 50-55% Atypical septal motion noticed Card consulted since he is high risk pt..may need cardiac cath in that case, will start him on Mucor myst for renal protection Qualifiers: Chest pain type: unspecified Qualified Code(s): R07.9 - Chest pain, unspecified (2) Hedhp-uf-tgxnhrb kidney injury Current Visit: Yes Status: Acute Assessment and plan: Multi factorial Dehydration + Medication ( Metformin + Cozaar ) 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 @ 1.2 now his Cr 2.14 y/d improved to 1.76 now cont IV hydration avoid nephro toxic meds Qualifiers: Acute renal failure type: unspecified Chronic kidney disease stage: stage 3 (moderate) Qualified Code(s): N17.9 - Acute kidney failure, unspecified; N18.3 - Chronic kidney disease, stage 3 (moderate); N18.3 - Chronic kidney disease, stage 3 (moderate) (3) Diabetes Current Visit: Yes Status: Chronic Assessment and plan: on ISS Qualifiers: Diabetes mellitus type: type 2 Diabetes mellitus complication status: with kidney complications Diabetes mellitus complication detail: with chronic kidney disease Diabetes mellitus skilled nursing insulin use: without skilled nursing use Chronic kidney disease stage: stage 3 (moderate) Qualified Code(s): E11.22 - Type 2 diabetes mellitus with diabetic chronic kidney disease; N18.3 - Chronic kidney disease, stage 3 (moderate); N18.3 - Chronic kidney disease, stage 3 (moderate) (4) Ischemic cardiomyopathy Current Visit: Yes Status: Chronic (5) Hypertension Current Visit: Yes Status: Chronic Qualifiers: Hypertension type: essential hypertension Qualified Code(s): I10 - Essential (primary) hypertension (6) CAD (coronary artery disease) Current Visit: Yes Status: Chronic Qualifiers: Coronary Disease-Associated Artery/Lesion type: [place] artery [place] vs. transplanted heart: [place] heart Associated angina: with other forms of angina Qualified Code(s): I25.118 - Atherosclerotic heart disease of [place] coronary artery with other forms of angina pectoris (7) HLD (hyperlipidemia) Current Visit: Yes Status: Chronic Qualifiers: Hyperlipidemia type: unspecified Qualified Code(s): E78.5 - Hyperlipidemia , unspecified (8) Afib Current Visit: Yes Status: Chronic Assessment and plan: HR controlled, continue BB INR therapeutic, continue Warfarin, pharm to dose with PT/INR Qualifiers: Atrial fibrillation type: chronic Qualified Code(s): I48.2 - Chronic atrial fibrillation - Subjective Interval history: Mr. Last is a 77 year old male with CAD s/p CABG/Multiple stents, ischemic CMP with ICD, Afib on warfarin, DM, HTN, CKD III He presented to the ER with complains of one day history of chest pain occurring at rest, said to feel "heavy like when I had m heart attacks", radiating to his left neck and moderately severe , pain is constant and has been relieved with medications in the ER, he states it wasn't relieved with his home dose of NTG. No known aggravating factors. He denies associated nausea, vomiting, diaphoresis, SOB. Pt was admitted in the hospital and placed him on tele and checked serial troponin. Pt stated his CP lot better today however still have mild chest discomfort in sub sternal region, radiating to her upper back. Denied any N/V. - Constitutional Vitals: Temp Pulse Resp BP Pulse Ox 98.3 F 60 14 133/65 95 12/07/17 11:19 12/07/17 11:19 12/07/17 11:19 12/07/17 11:19 12/07/17 11:19 General appearance: Present: A&O X 3, pleasant, no acute distress, obese - Head Head exam: Present: atraumatic, normal inspection - Neck Neck exam general surgery: Present: supple - Respiratory Respiratory exam: Present: decreased breath sounds. Absent: rales, respiratory distress, rhonchi, wheezes - Cardiovascular Cardiovascular exam: Present: +S1, +S2. Absent: systolic murmur, tachycardia - GI/Abdominal GI/Abdominal exam: Present: normal bowel sounds, soft. Absent: rebound, rigid, tenderness - Extremities Exam Extremities exam: Absent: calf tenderness, pedal edema, tenderness - Back Exam Back exam: Absent: CVA tenderness (L), CVA tenderness (R) - Neurological Exam Neurological exam: Present: alert, oriented X3 - Psychiatric Psychiatric exam: Present: normal affect, normal mood Internal Medicine: Result - Labs CBC & Chem 7: 12/07/17 04:10 12/07/17 04:10 Labs: Short CBC 12/07/17 Range/Units 04:10 WBC 3.4 L (4.3-11.1) K/mcL Hgb 10.2 L (12.9-16.9) g/dL Hct 30.6 L (37.5-50.1) % Plt Count 109 L (140-400) K/mcL Neutrophils # 2.0 (1.6-8.9) K/mcL BMP 12/07/17 04:10 Sodium 142 Potassium 3.8 Chloride 110 H Carbon Dioxide 29 BUN 24 H Creatinine 1.76 H Glucose 91 Calcium 8.5 L Cardiac Enzymes 12/06/17 Range/Units 22:04 Troponin I < 0.03 (< 0.04) ng/mL Urine 12/06/17 Range/Units 18:20 Urine Color Yellow (Yellow) Urine Clarity Clear (Clear) Urine pH 7.0 (5.0-8.0) pH Units Ur Specific [place] 1.005 L (1.010-1.025) Urine Protein Negative (Neg-Trace) mg/dL Urine Glucose (UA) Normal (Normal) mg/dL - ABG Interpretation ABG results: PT/INR, D-dimer PT 29.2 Seconds (9.4-12.1) H 12/07/17 04:10 - Impressions Impressions Retroperitoneum Ultrasound 12/06/17 14:30 IMPRESSION: Kidneys are increased in echogenicity which can be seen in medical renal disease. Small postvoid residual volume of the bladder D/ / Mary Grajeda MD / Mary Grajeda MD Interpreting Provider: Mary Grajeda MD Consult Discharge Plan - Plan Referrals: Alix Wolff DO [Primary Care Provider] -
[2017-12-07] MEDS ORDERED: 0.9 % Sodium Chloride 1,000 ML ONE (12:03)
[2017-12-07] MEDS: Acetaminophen 325 MG TABLET PO PRN (12:04)
[2017-12-07] MEDS: 0.9 % Sodium Chloride 1,000 ML IVC SCH ×2 (12:28→22:12)
--- NOTE | 2017-12-07 12:46 | Cardiology Consult Note ---
<Carlos AJodi J - Last Filed: 12/07/17 13:22> Date of Encounter: 12/07/17 Time of Encounter: 12:00 Assessment and Plan (1) Chest pain Current Visit: Yes Status: Acute Per cardiology: -Admitted with chest pain at rest. -Denies exertional symptoms. -Admits to increased fatigue and increased shortness of breath. -States similar to previous anginal equivalent. -Troponins negative. -No acute ECG changes noted. -Will increase imdur. -Will hold coumadin. Anticipate LHC prior to discharge when able due to INR, renal function. Also if platelets and hemoglobin are stable. Qualifiers: Chest pain type: unspecified Qualified Code(s): R07.9 - Chest pain, unspecified (2) CAD (coronary artery disease) Current Visit: Yes Status: Chronic Per cardiology: -Known history of CAD s/p CABG x2 vessel and multiple PCIs. -On plavix, statin, beta eder. States does not take ASA at home due to needing coumadin. -TTE this admisison with LVEF 50-55%, atypical septal motion (paced), mild TR, mild MR, mild PH, no segmental wall motion abnormalities. -LHC 12/2015 with 50% left main, 30% ISR proximal LAD, 70% ISR mid LAD, 50% distal LAD, 100% proximal circumflex, ramus free of disease, 20% ISR proximal RCA, 30% ISR mid RCA, 95% distal RCA with ALLEY placed, SVG to diagonal 1 patent, VICTOR to LAD patent. -Will add asa. -PLan for LHC prior to discharge. Qualifiers: Coronary Disease-Associated Artery/Lesion type: [place] artery [place] vs. transplanted heart: [place] heart Associated angina: with other forms of angina Qualified Code(s): I25.118 - Atherosclerotic heart disease of [place] coronary artery with other forms of angina pectoris (3) Afib Current Visit: Yes Status: Chronic Per cardiology: -Known atrial fibrillation. -ON beta eder. -HR controlled. -On coumadin. NO previous history of CVA, TIA, DVT, or other embolic event. -Will continue to monitor. -Will hold coumadin, plan for LHC. Qualifiers: Atrial fibrillation type: chronic Qualified Code(s): I48.2 - Chronic atrial fibrillation (4) Zzvuy-vu-sqeniew kidney injury Current Visit: Yes Status: Acute Per cardiology: -ALBA on CKD. -Creatinine on amdission 2.14, today 1.76. -Management per primary service. -Consider nephrology consult. Qualifiers: Acute renal failure type: unspecified Chronic kidney disease stage: unspecified stage Qualified Code(s): N17.9 - Acute kidney failure, unspecified ; N18.9 - Chronic kidney disease, unspecified; N18.9 - Chronic kidney disease, unspecified (5) Ischemic cardiomyopathy Current Visit: Yes Status: Chronic Per cardiology: -History of ICM. -2014 LVEF 45%. -TTE this admission with LVEF 50-55%. -Euvolemic on exam. -ON beta eder, not on andrew/arb due to renal function. -WIll continue to monitor. (6) Pancytopenia Current Visit: No Status: Chronic Per cardiology: -Known history of pancytopenia. -PLatelets and hemoglobin about baseline. -Takes coumadin and plavix at home. -Reports hepatits B. -Management per primary service. -Consider hematology consult. Discussion w patient/family: The assessment and plan as outlined above was discussed with the patient who expressed understanding and agreement. All questions were answered. Thank you for involving us in the care of your patient. Please call with any questions. Discussed and reviewed with . History of Present Illness Consult date: 12/07/17 Requesting physician: Abdias Garcia Consult reason: chest pain Chief complaint: chest pain History of present illness: Mr. Last is a 77 year old male with a relevant past medical history of CAD s/ p CABG x2 vessels, multiple PCIs, DM, HTN, splenomegaly, pancytopenia, ischemic cardiomyopathy, atrial fibrillation, pacemaker. Patient presented to [facility] with complaints of chest pain. Patient states pain started yesterday while at rest. Denies aggravating or alleviating factors. Denies exertional symptoms. Denies current chest pain. Of note, patient reports increased shortness of breath and increased fatigue for the past 6 months. Patient reports symptoms are similar to previous anginal equivalent. Past Med Surg Social Fam HX - Past Medical History Attestation: Yes The following information was validated with the patient. Source: patient, old records reviewed Medical history: cardiomyopathy, coronary artery disease, diabetes, hyperlipidemia, hypertension Psychiatric history: no psych history - Past Surgical History Surgical History: angioplasty/stent (12 stents), cataract, coronary bypass (CABG ), pacemaker/AICD - Social History Smoking Status: Never smoker Smokeless Tobacco Status: No Alcohol use: none Drug use: none - Family History Father Adopted: No Family Member Ethnicity: Non- Living Status: Hx Family Cardiac Disorders: Yes Hx Family Respiratory Disorders: No Hx Family Cancer: Yes Hx Family GI Disorders: No Hx Family Endocrine Disorder: Yes Hx Family Neuromuscular Disorders: No Hx Family Neurologic Disorders: Yes Hx Family HEENT Disorders: No Hx Family Autoimmune Disorders: No Medications and Allergies Clopidogrel [Plavix] 75 mg PO QAM 07/23/15 [History] Docusate [Colace] 100 mg PO QAM PRN 07/23/15 [History] Gabapentin [Neurontin] 300 mg PO TID 07/23/15 [History] Multivitamin/Iron/Folic Acid [Centrum Complete Multivit Tab] 1 tab PO QAM [History] Nitroglycerin [Nitrostat] 0.4 mg SL AD PRN 07/23/15 [History] Pantoprazole Sodium 40 mg PO QAM 07/23/15 [History] Isosorbide MONOnitrate (24 HR) [Imdur] 90 mg PO DAILY #30 tab.er.24h 01/01/16 [ Rx] Furosemide [Lasix] 80 mg PO BID #6 tab 02/22/16 [Rx] Atorvastatin [Lipitor] 40 mg PO HS 05/16/16 [History] Glimepiride [Amaryl] 8 mg PO DAILY 05/16/16 [History] Losartan Potassium [Cozaar] 100 mg PO DAILY 05/16/16 [History] Metformin HCl [Glucophage] 1,000 mg PO BIDWM 05/16/16 [History] Metoprolol Succinate 200 mg PO QAM 05/16/16 [History] Potassium Chloride [K-Tab ER] 10 meq PO DAILY 05/16/16 [History] amLODIPine [Norvasc] 10 mg PO DAILY #60 tablet 05/18/16 [Rx] Lamivudine [Epivir Hbv] 100 mg PO DAILY 12/06/17 [History] Warfarin [Coumadin] 2.5 mg PO MOWEFRSA@1800 12/06/17 [History] Warfarin [Coumadin] 5 mg PO SUTUTH@1800 12/06/17 [History] 3 Allergy/AdvReac Type Severity Reaction Status Date / Time No Known Allergies Allergy Verified 07/23/15 17:25 All Systems Review: A 10-system review of systems was performed and is negative for pertinent findings except as documented above in the HPI. - Constitutional Constitutional: fatigue - Cardiovascular Cardiovascular: as per HPI, chest pain at rest, dyspnea at rest, dyspnea on exertion Physical Examination Vital Signs, Last 4 Hours Temp Pulse Resp BP Pulse Ox 12/07/17 11:19 98.3 F 60 14 133/65 95 12/07/17 09:47 95 General: Conversant, No Apparent Distress HEENT: Atraumatic, Normocephaly, Mucus Membranes Moist Neck: No JVD, Normal carotid pulses Cardiac: Reg Rate and Rhythm, Normal S1 and S2, No Murmur Lungs: Normal Breath Sounds, No Wheeze, Rales, Rhonchi Neuro: Alert and responsive, No focal deficits noted Abdomen: Soft, Non-Tender Skin: No rashes noted on visualized skin Musculoskeletal: No Chest Wall Tenderness Extremities: No Clubbing, No Cyanosis, No Edema, Normal Pulses Results 12/07/17 04:10 12/07/17 04:10 Lab Results Impressions Echocardiogram 12/06/17 11:58 Impressions: LVEF 50-55%. Atypical septal motion. Indeterminate diastolic function. Normal right ventricular structure and function. Mild tricuspid regurgitation. Mild mitral regurgitation. Moderate pulmonary hypertension. Left Ventricular Wall Motion: Rest Echo Findings All wall segments showed normal motion. Findings: Study Quality * Technically adequate exam. ECG Findings * Paced rhythm. Left Ventricle * LVEF 50-55%. * Atypical septal motion. * Indeterminate diastolic function. * Normal LV size and wall thickness. Right Ventricle * Normal right ventricular structure and function. Left Atrium * Moderately dilated left atrium. Right Atrium * Normal right atrial size. Aortic Valve * Trileaflet aortic valve. * No aortic stenosis. * Trace aortic regurgitation. Tricuspid Valve * Normal tricuspid valve structure. * Mild tricuspid regurgitation. * Estimated RA pressure is 15 mmHg. * Estimated RVSP is 54 mmHg. * Moderate pulmonary hypertension. Pulmonic Valve * Not well visualized. * No pulmonic stenosis. * No pulmonic regurgitation. Pulmonary Artery * Pulmonary artery not well visualized. Aorta * Normally sized aortic root. Mitral Valve * Mild mitral regurgitation. * No mitral stenosis. * Normal mitral valve structure. Device lead * A device lead was visualized in the right atrium and right ventricle. Pericardium * There is no pericardial effusion present. Interatrial Septum * No evidence of PFO by color Doppler. IVC * The IVC is dilated. * < 50% respiratory change. Retroperitoneum Ultrasound 12/06/17 14:30 IMPRESSION: Kidneys are increased in echogenicity which can be seen in medical renal disease. Small postvoid residual volume of the bladder D/ / Mary Grajeda MD / Mary Grajeda MD Interpreting Provider: Mary Grajeda MD Active Medications Acetaminophen (Tylenol) 650 mg PO Q6HR PRN PRN Reason: Mild Pain (1-3) Stop: 06/07/18 11:54 Last Admin: 12/07/17 12:04 Dose: 650 mg Hydrocodone Bitart/Acetaminophen ([place] 5-325 Mg) 1 tab PO Q4HR PRN PRN Reason: Moderate Pain (4-6) Stop: 06/07/18 11:54 Last Admin: 12/06/17 21:16 Dose: 1 tab Amlodipine Besylate (Norvasc) 10 mg PO DAILY SOUMYA PRN Reason: Protocol Stop: 06/08/18 09:01 Last Admin: 12/07/17 09:39 Dose: 10 mg Atorvastatin Calcium (Lipitor) 40 mg PO HS [facility] Stop: 06/07/18 21:01 Last Admin: 12/06/17 21:14 Dose: 40 mg Clopidogrel Bisulfate (Plavix) 75 mg PO QAM SOUMYA Stop: 06/08/18 09:01 Last Admin: 12/07/17 09:40 Dose: 75 mg Dextrose/Water (Dextrose 50% (Syg)) 25 ml IVP AD PRN PRN Reason: Hypoglycemia Stop: 06/07/18 11:58 Docusate Sodium (Colace) 100 mg PO QAM PRN; Protocol PRN Reason: Constipation Stop: 06/07/18 11:50 Gabapentin (Neurontin) 300 mg PO TID SOUMYA Stop: 06/07/18 15:01 Last Admin: 12/07/17 09:40 Dose: 300 mg Glucagon (Glucagen) 1 mg IM ONCE PRN PRN Reason: Hypoglycemia Stop: 06/07/18 11:58 Glucose (Gluctose) 15 gm PO ONCE PRN PRN Reason: Hypoglycemia Stop: 06/07/18 11:58 Glucose (Gluctose) 30 gm PO ONCE PRN PRN Reason: Hypoglycemia Stop: 06/07/18 11:58 Dextrose (Dextrose 5%) 1,000 mls @ 100 mls/hr IVC .Q10H PRN PRN Reason: HYPOGLYCEMIA Stop: 06/07/18 11:58 Sodium Chloride (0.9 % Sodium Chloride) 1,000 mls @ 100 mls/hr IVC .Q10H [facility] Stop: 06/08/18 12:01 Last Admin: 12/07/17 12:28 Dose: 100 mls/hr Insulin Human Lispro (Humalog) 0 units SQ TIDAC SOUMYA PRN Reason: Protocol Stop: 06/07/18 16:31 Last Admin: 12/07/17 12:01 Dose: 6 units Insulin Human Lispro (Humalog) 0 units SQ HS [facility] PRN Reason: Protocol Stop: 06/07/18 21:01 Last Admin: 12/06/17 21:14 Dose: Not Given Isosorbide Mononitrate (Imdur) 90 mg PO DAILY [facility] Stop: 06/08/18 09:01 Last Admin: 12/07/17 09:39 Dose: 90 mg Metoprolol Succinate (Toprol Xl) 200 mg PO [facility] Stop: 06/08/18 09:01 Last Admin: 12/07/17 09:39 Dose: 200 mg Multivitamins/Calcium (Thera M Plus) 1 tab PO [facility] Stop: 06/08/18 09:01 Last Admin: 12/07/17 09:40 Dose: 1 tab Naloxone HCl (Narcan) 0.4 mg IVP Q2MIN PRN PRN Reason: Opioid Reversal Stop: 06/07/18 11:54 Omeprazole ([facility]ilosec) [facility] [place] Stop: 06/08/18 09:01 Last Admin: 12/07/17 09:40 Dose: 20 mg Ondansetron HCl (Zofran) 4 mg IVP Q8HR PRN PRN Reason: Nausea And Vomiting Stop: 06/07/18 11:54 Warfarin Sodium (Coumadin Perpt) 1 each PO DAILY@1800 PRN PRN Reason: SEE COMMENTS Stop: 06/07/18 18:01 Warfarin Sodium [facility]madin) [facility] Stop: 06/07/18 18:01 Last Admin: 12/06/17 17:07 Dose: 5 mg Warfarin Sodium (Coumadin) 2.5 mg PO SuTuThSa@1800 [facility] Stop: 06/07/18 18:01 Last Admin: 12/06/17 17:07 Dose: 2.5 mg Laboratory Tests 03/28/16 05/17/16 05/18/16 10:03 00:00 03:59 Hgb INR Creatinine 1.48 H 1.20 1.05 Troponin I 12/06/17 12/06/17 12/06/17 09:54 09:54 12:10 Hgb INR Creatinine 2.14 H Troponin I < 0.03 < 0.03 12/06/17 12/07/17 12/07/17 22:04 04:10 04:10 Hgb 10.2 L INR Creatinine 1.76 H Troponin I < 0.03 12/07/17 04:10 Hgb INR 2.7 Creatinine Troponin I - Imaging and Cardiology Chest Xray: report reviewed Stress Test: report reviewed Echo: report reviewed Cardiac cath: report reviewed - EKG Interpretation EKG results cardiology: personally reviewed (ECG with paced rhythm.), other ( Telemetry reviewed with average HR previous 12 hours noted to be 69, paced rhythm.) Consult Discharge Plan - Plan Referrals: Alix Wolff DO [Primary Care Provider] - <Bryce Rios - Last Filed: 12/08/17 12:52> Date of Encounter: 12/07/17 Time of Encounter: 19:00 - Attending Attestation I have personally performed a face to face evaluation on this patient. I have reviewed and agree with the care plan. History and Exam by me shows: CC: Chest pain Pt admitted through ER with complaint of left sided intermittant chest pain, 6/ 10 at most severe, not associated with nausea, diaphoresis or shortness of breath, occurs and resolves spontaneously, lasts two to five minutes generally, but has episodes which last ten to fifteen seconds. He has not been taking aspirin while on warfarin for atrial fib. He reports heart racing when he first developted A fib has resolved. 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 He has had two episodes of chest pain this afternoon which lasted less than two minutes each, resolved spontaneously, did not notify nursing for trial of sl ntg. Pt initially reported pain present just last 24 hours, now reports has been on and off for several weeks. PE: reviewed above, agree with additions heart is irreg irregular, rate 80 to 100, left chest wall is tender to palpation fifth interspace mid clavicular line which does not reproduce chest pain. IMP: 1. Chest pain: atypical, troponins and EKG unremarkable, however in light of pts known triple vessel CAD, post CABG, PCI with stents x 12, recommend diagnostic LHC with possible PCI if indicated when INR <1.8. Coumadin is on hold for now, restarted ASA, will continue to trend troponins. 2. A fib - chronic, adequate rate control, on systemic anticoagulation for primary stroke risk reduction, will start heparin when INR < 2.2, would not reverse anticoagulation with known A fib and 12 previous stents. 3. Acute on chronic renal failure, improving on current meds. Assessment and Plan Discussion w patient/family: The assessment and plan as outlined above was discussed with the patient and/or family members who expressed understanding and agreement. All questions were answered. Thank you for involving us in the care of your patient. Please call with any questions. History of Present Illness History of present illness: Mr. Last is a 77 year old male All Systems Review: A 10-system review of systems was performed and is negative for pertinent findings except as documented above in the HPI. Physical Examination Vital Signs, Last 4 Hours Temp Pulse Resp BP Pulse Ox 12/08/17 11:35 98.2 F 60 16 142/67 93 Results 12/07/17 04:10 12/08/17 05:23 Lab Results 12/08/17 12/08/17 05:23 05:23 INR 2.9 Sodium 141 Potassium 4.1 Chloride 112 H Carbon Dioxide 26 BUN 20 Creatinine 1.48 H Glucose 131 H Calcium 8.7 Magnesium 2.1
[2017-12-07] MEDS: *HR* HYDROcodone/Acet 5/325 mg TABLET PO PRN (19:35)
[2017-12-07] MEDS: *HR* Acetylcysteine 20% 600 MG/3 ML ORAL SYRINGE PO SCH (21:55)
[2017-12-08] MEDS: *HR* HYDROcodone/Acet 5/325 mg TABLET PO PRN (04:12)
[2017-12-08 06:07] LABS: INR 2.9; Prothrombin Time 31.8 Seconds (9.4-12.1)
[2017-12-08 06:10] LABS: Calcium 8.7 mg/dL (8.6-10.3); Magnesium 2.1 mg/dL (1.6-2.6); Potassium 4.1 mEq/L (3.5-5.1)
[2017-12-08] MEDS: 0.9 % Sodium Chloride 1,000 ML IVC SCH (08:16)
[2017-12-08] MEDS: Insulin LISPRO 300 UNITS/3 ML VIAL SQ SCH ×4 (08:21→21:32)
[2017-12-08] MEDS ORDERED: Isosorbide MONOnitrate (24 HR) 60 MG TAB.ER.24H PO SCH (09:00)
--- NOTE | 2017-12-08 09:56 | Electrocardiograph Report ---
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
--- NOTE | 2017-12-08 09:59 | Electrocardiograph Report ---
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
[2017-12-08] MEDS: Acetaminophen 325 MG TABLET PO PRN ×2 (10:34→18:51)
[2017-12-08] MEDS: Metoprolol XL (24 HR) Succ 50 MG TAB.ER.24H PO SCH (10:35)
[2017-12-08] MEDS: Multivit/Ca/Min/Fe/FA 1 TAB TABLET PO SCH (10:35)
[2017-12-08] MEDS: amLODIPine 5 MG TABLET PO SCH (10:35)
[2017-12-08] MEDS: Gabapentin 300 MG CAPSULE PO SCH ×3 (10:35→21:29)
[2017-12-08] MEDS: Aspirin Enteric Coated 81 MG Tablet PO SCH (10:35)
[2017-12-08] MEDS: *HR* Acetylcysteine 20% 600 MG/3 ML ORAL SYRINGE PO SCH ×2 (10:37→21:31)
--- NOTE | 2017-12-08 10:50 | Internal Med Progress Note ---
Date of Encounter: 12/08/17 Time of Encounter: 10:50 - Assessment and plan (1) Chest pain Current Visit: Yes Status: Acute Assessment and plan: So far negative Trop No acute ischemic changes on EKG does have multiple PVC's on monitor cont Metoprolol + inc Imdur to 90 Held ARB's due to ALBA cont ASA + Plavix Echo showed LVEF 50-55% Atypical septal motion noticed Card on board Recommend [facility].. however his INR is still @ 2.9 Cont holding Coumadin Placed him on mucormyst Qualifiers: Chest pain type: unspecified Qualified Code(s): R07.9 - Chest pain, unspecified (2) Gmwdk-[id number]-kpqrjtq kidney injury Current Visit: Yes Status: Acute Assessment and plan: Multi factorial Dehydration + Medication ( Metformin + Cozaar ) 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 @ 1.2 Cr started improving will hold IVF for now avoid nephro toxic meds started on mucormyst Qualifiers: Acute renal failure type: unspecified Chronic kidney disease stage: unspecified stage Qualified Code(s): N17.9 - Acute kidney failure, unspecified ; N18.9 - Chronic kidney disease, unspecified; N18.9 - Chronic kidney disease, unspecified (3) Diabetes Current Visit: Yes Status: Chronic Assessment and plan: on ISS Qualifiers: Diabetes mellitus type: type 2 Diabetes mellitus complication status: with kidney complications Diabetes mellitus complication detail: with chronic kidney disease 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 Chronic kidney disease stage: stage 3 (moderate) Qualified Code(s): E11.22 - Type 2 diabetes mellitus with diabetic chronic kidney disease; N18.3 - Chronic kidney disease, stage 3 (moderate); N18.3 - Chronic kidney disease, stage 3 (moderate) (4) Ischemic cardiomyopathy Current Visit: Yes Status: Chronic (5) Hypertension Current Visit: Yes Status: Chronic Qualifiers: Hypertension type: essential hypertension Qualified Code(s): I10 - Essential (primary) hypertension (6) CAD (coronary artery disease) Current Visit: Yes Status: Chronic Qualifiers: Coronary Disease-Associated Artery/Lesion type: [place] artery [place] vs. transplanted heart: [place] heart Associated angina: with other forms of angina Qualified Code(s): I25.118 - Atherosclerotic heart disease of [place] coronary artery with other forms of angina pectoris (7) HLD (hyperlipidemia) Current Visit: Yes Status: Chronic Assessment and plan: on statin Qualifiers: Hyperlipidemia type: unspecified Qualified Code(s): E78.5 - Hyperlipidemia , unspecified (8) Afib Current Visit: Yes Status: Chronic Assessment and plan: HR controlled, continue BB Held Coumadin since he is going for [facility] Qualifiers: Atrial fibrillation type: chronic Qualified Code(s): I48.2 - Chronic atrial fibrillation - Subjective Interval history: Mr. Last is a 77 year old male with CAD s/p CABG/Multiple stents, ischemic CMP with ICD, Afib on warfarin, DM, HTN, CKD III He presented to the ER with complains of one day history of chest pain occurring at rest, said to feel "heavy like when I had m heart attacks", radiating to his left neck and moderately severe , pain is constant and has been relieved with medications in the ER, he states it wasn't relieved with his home dose of NTG. No known aggravating factors. He denies associated nausea, vomiting, diaphoresis, SOB. Pt was admitted in the hospital and placed him on tele and checked serial troponin. Pt was seen and exaimned at bed side, he still have mild chest discomfort in sub sternal region, radiating to her upper back. Denied any N/V. - Constitutional Vitals: Temp Pulse Resp BP Pulse Ox 98.5 F 60 14 153/82 92 12/08/17 07:08 12/08/17 07:08 12/08/17 07:08 12/08/17 07:08 12/08/17 07:08 General appearance: Present: A&O X 3, pleasant, no acute distress, obese - Head Head exam: Present: atraumatic, normal inspection - Neck Neck exam general surgery: Present: supple - Respiratory Respiratory exam: Present: decreased breath sounds. Absent: rales, respiratory distress, rhonchi, wheezes - Cardiovascular Cardiovascular exam: Present: RRR, +S1, +S2. Absent: tachycardia - GI/Abdominal GI/Abdominal exam: Present: normal bowel sounds, soft. Absent: rebound, rigid, tenderness - Extremities Exam Extremities exam: Absent: calf tenderness, pedal edema, tenderness - Back Exam Back exam: Absent: CVA tenderness (L), CVA tenderness (R) - Neurological Exam Neurological exam: Present: alert, oriented X3 - Psychiatric Psychiatric exam: Present: normal affect, normal mood Internal Medicine: Result - Labs CBC & Chem 7: 12/07/17 04:10 12/08/17 05:23 Labs: BMP 12/08/17 05:23 Sodium 141 Potassium 4.1 Chloride 112 H Carbon Dioxide 26 BUN 20 Creatinine 1.48 H Glucose 131 H Calcium 8.7 - ABG Interpretation ABG results: PT/INR, D-dimer PT 31.8 Seconds (9.4-12.1) H 12/08/17 05:23 Consult Discharge Plan - Plan Referrals: Alix Wolff DO [Primary Care Provider] -
--- NOTE | 2017-12-08 12:56 | Cardiology Progress Note ---
Date of Encounter: 12/08/17 Time of Encounter: 12:00 Assessment and Plan (1) Chest pain Current Visit: Yes Status: Acute Pt continues to have atypical chest pain on and off, no tropoin elevation, EKG changes, new worsening of headache with increased IMdur, will DC imdur, start Ranexa lower dose due to renal insufficiency, monitor headache and chest pain off Imdur. INR still therapeutic at > 2, LHC on hold until INR < 1.8. Pt is having symptoms on Plavix, will switch to Brillinta. - Qualifiers: Chest pain type: other chest pain Qualified Code(s): R07.89 - Other chest pain; R07.8 - Other chest pain (2) CAD (coronary artery disease) Current Visit: Yes Status: Acute Severe triple vessel disease, post CABG, post PCI x 12, will review cath films, plan LHC when INR <1.8 Qualifiers: Coronary Disease-Associated Artery/Lesion type: [place] artery [place] vs. transplanted heart: [place] heart Associated angina: with unstable angina Qualified Code(s): I25.110 - Atherosclerotic heart disease of [place] coronary artery with unstable angina pectoris (3) CAD (coronary artery disease) Current Visit: Yes Status: Chronic Per cardiology: -Known history of CAD s/p CABG x2 vessel and multiple PCIs. -On plavix, statin, beta eder. States does not take ASA at home due to needing coumadin. -TTE this admisison with LVEF 50-55%, atypical septal motion (paced), mild TR, mild MR, mild PH, no segmental wall motion abnormalities. -LHC 12/2015 with 50% left main, 30% ISR proximal LAD, 70% ISR mid LAD, 50% distal LAD, 100% proximal circumflex, ramus free of disease, 20% ISR proximal RCA, 30% ISR mid RCA, 95% distal RCA with ALLEY placed, SVG to diagonal 1 patent, VICTOR to LAD patent. -Will add asa. -PLan for LHC prior to discharge. Qualifiers: Coronary Disease-Associated Artery/Lesion type: [place] artery [place] vs. transplanted heart: [place] heart Associated angina: with other forms of angina Qualified Code(s): I25.118 - Atherosclerotic heart disease of [place] coronary artery with other forms of angina pectoris (4) Acute kidney injury superimposed on chronic kidney disease Current Visit: Yes Status: Acute (5) Wzctj-mh-dlsqjit kidney injury Current Visit: Yes Status: Acute Renal function improving, appreciate primary team help, started on mucomyst, may be of some limited benefit, will plan aggresive hydration before [facility]. Qualifiers: Acute renal failure type: unspecified Chronic kidney disease stage: stage 4 (severe) Qualified Code(s): N17.9 - Acute kidney failure, unspecified; N18.4 - Chronic kidney disease, stage 4 (severe); N18.4 - Chronic kidney disease , stage 4 (severe); N18.4 - Chronic kidney disease, stage 4 (severe); N18.4 - Chronic kidney disease, stage 4 (severe) (6) Atrial fibrillation Current Visit: Yes Status: Chronic Chronic A fib with controlled ventricular response, continue current medications. Qualifiers: Atrial fibrillation type: chronic Qualified Code(s): I48.2 - Chronic atrial fibrillation Discussion w patient/family: The assessment and plan as outlined above was discussed with the patient and/or family members who expressed understanding and agreement. All questions were answered. Thank you for involving us in the care of your patient. Please call with any questions. Subjective Principal diagnosis: chest pain Interval history: PT reports chest pain has improved, but still comes and goes. He has experienced two episodes this AM, each occurred at rest, lastes less than two minutes, resolved spontaneously. He has not asked for sl ntg. He has been up to restroom without provocation of chest pain. He is resting comfortably at present. Objective Vital Signs, Last 4 Hours Temp Pulse Resp BP Pulse Ox 12/08/17 11:35 98.2 F 60 16 142/67 93 General: Conversant HEENT: Atraumatic, Normocephaly Neck: No JVD Cardiac: No Murmur, Other (irregularly irregular, a fib with controlled ventriuclar response) Lungs: No Wheeze, Rales, Rhonchi Neuro: Alert and responsive, No focal deficits noted (complains of mild headache. ) Abdomen: Non-Tender Skin: No rashes noted on visualized skin Musculoskeletal: No Chest Wall Tenderness Extremities: No Clubbing, No Cyanosis, No Edema Results 12/07/17 04:10 12/08/17 05:23 Lab Results 12/08/17 12/08/17 05:23 05:23 INR 2.9 Sodium 141 Potassium 4.1 Chloride 112 H Carbon Dioxide 26 BUN 20 Creatinine 1.48 H Glucose 131 H Calcium 8.7 Magnesium 2.1 Consult Discharge Plan - Plan Referrals: Alix oWlff DO [Primary Care Provider] -
[2017-12-08] MEDS ORDERED: *HR* Ticagrelor 90 MG TABLET PO ONE (13:11)
[2017-12-08] MEDS ORDERED: Nitroglycerin 0.4 MG TAB.SUBL SL PRN (20:40)
[2017-12-08] MEDS ORDERED: Aspirin 81 MG TAB.CHEW PO SCH (21:15)
[2017-12-08] MEDS ORDERED: Aspirin 81 MG TAB.CHEW PO ONE (21:19)
[2017-12-08] MEDS: Ranolazine 500 MG TAB.ER.12H PO SCH (21:29)
[2017-12-08] MEDS: Nitroglycerin 1 INCH/GM PACKET TP SCH (21:54)
[2017-12-09] MEDS: Nitroglycerin 1 INCH/GM PACKET TP SCH ×2 (05:40→12:08)
[2017-12-09 06:22] LABS: Basophils % 0.2 %; Eosinophils # 0.1 K/mcL (0.0-0.6); Eosinophils % 2.9 %; Hematocrit 32.8 % (37.5-50.1); Hemoglobin 11.1 g/dL (12.9-16.9); Immature Granulocytes % 0.2 % (0-4); Lymphocytes # 0.9 K/mcL (0.6-4.6); Lymphocytes % 20.8 %; Mean Corpuscular HGB Conc 33.8 g/dL (31.6-35.5); Mean Corpuscular Hemoglobin 31.1 pg (28.0-33.3); Mean Corpuscular Volume 91.9 fL (83.0-100.0); Mean Platelet Volume 11.3 fL (9.4-12.4); Monocytes # 0.4 K/mcL (0.0-1.3); Monocytes % 8.4 %; Platelet Count 125 K/mcL (140-400); Red Blood Count 3.57 M/mcL (4.19-5.50); Red Cell Distribution Width 13.8 % (11.5-14.5); Segmented Neutrophils % 67.5 %
[2017-12-09 06:35] LABS: Prothrombin Time 22.4 Seconds (9.4-12.1)
[2017-12-09 06:38] LABS: BUN/Creatinine Ratio 11 (6-26); Blood Urea Nitrogen 15 mg/dL (8-23); Carbon Dioxide 23 mEq/L (23-29); Chloride 112 mEq/L (98-107); Glucose 123 mg/dL (70-105); Osmolality,Calculated 294 (280-300); Potassium 3.7 mEq/L (3.5-5.1); Sodium 141 mEq/L (136-145); eGFR For African Americans > 60 (> 60); eGFR For Non-African Americans 52 (> 60)
[2017-12-09] MEDS: Ranolazine 500 MG TAB.ER.12H PO SCH ×2 (08:07→22:20)
[2017-12-09] MEDS: Multivit/Ca/Min/Fe/FA 1 TAB TABLET PO SCH (08:08)
[2017-12-09] MEDS: Metoprolol XL (24 HR) Succ 50 MG TAB.ER.24H PO SCH (08:08)
[2017-12-09] MEDS: Aspirin Enteric Coated 81 MG Tablet PO SCH (08:08)
[2017-12-09] MEDS: Gabapentin 300 MG CAPSULE PO SCH ×3 (08:08→22:20)
[2017-12-09] MEDS: amLODIPine 5 MG TABLET PO SCH (08:08)
[2017-12-09] MEDS: *HR* Acetylcysteine 20% 600 MG/3 ML ORAL SYRINGE PO SCH (08:11)
[2017-12-09] MEDS: Acetaminophen 325 MG TABLET PO PRN ×2 (08:13→16:40)
[2017-12-09] MEDS: Insulin LISPRO 300 UNITS/3 ML VIAL SQ SCH ×4 (08:55→22:20)
--- NOTE | 2017-12-09 13:25 | Cardiology Progress Note ---
Date of Encounter: 12/09/17 Time of Encounter: 12:50 Assessment and Plan (1) Chest pain Current Visit: Yes Status: Acute -Admits to increased fatigue and increased shortness of breath. -States similar to previous anginal equivalent; symptoms concerning for unstable angina. -Troponins negative. -No acute ECG changes noted. -Continue to have typical chest pain, now improved with NTG paste. -Plan for LHC in AM if INR will allow. Qualifiers: Chest pain type: other chest pain Qualified Code(s): R07.89 - Other chest pain; R07.8 - Other chest pain (2) CAD (coronary artery disease) Current Visit: Yes Status: Acute Severe triple vessel disease, post CABG, post PCI x 12 INR 2.0 today, will tentatively plan for LHC in AM. NPO after MN. Qualifiers: Coronary Disease-Associated Artery/Lesion type: [place] artery [place] vs. transplanted heart: [place] heart Associated angina: with unstable angina Qualified Code(s): I25.110 - Atherosclerotic heart disease of [place] coronary artery with unstable angina pectoris (3) Hyuxi-vn-pfwvmnp kidney injury Current Visit: Yes Status: Acute Renal function improving, appreciate primary team help, started on mucomyst, may be of some limited benefit, will plan aggressive hydration before LHC. Qualifiers: Acute renal failure type: unspecified Chronic kidney disease stage: stage 4 (severe) Qualified Code(s): N17.9 - Acute kidney failure, unspecified; N18.4 - Chronic kidney disease, stage 4 (severe); N18.4 - Chronic kidney disease , stage 4 (severe); N18.4 - Chronic kidney disease, stage 4 (severe); N18.4 - Chronic kidney disease, stage 4 (severe) (4) Atrial fibrillation Current Visit: Yes Status: Chronic Chronic A fib with controlled ventricular response, continue current medications. Coumadin on hold for LHC. Qualifiers: Atrial fibrillation type: chronic Qualified Code(s): I48.2 - Chronic atrial fibrillation (5) Ischemic cardiomyopathy Current Visit: Yes Status: Chronic Per cardiology: -History of ICM. -2014 LVEF 45%. -TTE this admission with LVEF 50-55%. -Euvolemic on exam. -ON beta eder, not on andrew/arb due to renal function. -WIll continue to monitor. (6) Pancytopenia Current Visit: No Status: Chronic Per cardiology: -Known history of pancytopenia. -PLatelets and hemoglobin about baseline. -Takes coumadin and plavix at home. -Reports hepatits B. -Management per primary service. -Consider hematology consult. Discussion w patient/family: The assessment and plan as outlined above was discussed with the patient and/or family members who expressed understanding and agreement. All questions were answered. Thank you for involving us in the care of your patient. Please call with any questions. The patient was discussed and reviewed with Dr. Rios. Subjective Principal diagnosis: chest pain Interval history: Seen and examined. Denies recurrent chest pain overnight. Will plan for LHC with possible PCI in AM if INR allows. No other concerns voiced at this time. Objective Vital Signs, Last 4 Hours Temp Pulse Resp BP Pulse Ox 12/09/17 11:27 98.1 F 60 16 138/67 99 General: Conversant, No Apparent Distress HEENT: Atraumatic, Normocephaly, Mucus Membranes Moist Cardiac: Other (irregularly irregular) Lungs: Normal Breath Sounds Neuro: Alert and responsive Abdomen: Soft Skin: No rashes noted on visualized skin Musculoskeletal: No Chest Wall Tenderness Extremities: No Edema, Normal Pulses Results 12/09/17 06:05 12/09/17 06:05 Lab Results 12/08/17 12/09/17 12/09/17 20:56 06:05 06:05 WBC 4.4 Hgb 11.1 L Hct 32.8 L Plt Count 125 L INR 2.0 Sodium Potassium Chloride Carbon Dioxide BUN Creatinine Glucose Calcium Magnesium Troponin I < 0.03 12/09/17 06:05 WBC Hgb Hct Plt Count INR Sodium 141 Potassium 3.7 Chloride 112 H Carbon Dioxide 23 BUN 15 Creatinine 1.34 H Glucose 123 H Calcium 9.0 Magnesium 2.0 Troponin I Active Medications Acetaminophen (Tylenol) 650 mg PO Q6HR PRN PRN Reason: Mild Pain (1-3) Stop: 06/07/18 11:54 Last Admin: 12/09/17 08:13 Dose: 650 mg Hydrocodone Bitart/Acetaminophen ([place] 5-325 Mg) 1 tab PO Q4HR PRN PRN Reason: Moderate Pain (4-6) Stop: 06/07/18 11:54 Last Admin: 12/08/17 04:12 Dose: 1 tab Amlodipine Besylate (Norvasc) 10 mg PO DAILY SOUMYA PRN Reason: Protocol Stop: 06/08/18 09:01 Last Admin: 12/09/17 08:08 Dose: 10 mg Aspirin (Aspirin Ec) 81 mg PO DAILY [facility] Stop: 06/09/18 09:01 Last Admin: 12/09/17 08:08 Dose: 81 mg Atorvastatin Calcium (Lipitor) 40 mg PO HS [facility] Stop: 06/07/18 21:01 Last Admin: 12/08/17 21:29 Dose: 40 mg Dextrose/Water (Dextrose 50% (Syg)) 25 ml IVP AD PRN PRN Reason: Hypoglycemia Stop: 06/07/18 11:58 Docusate Sodium (Colace) 100 mg PO QAM PRN; Protocol PRN Reason: Constipation Stop: 06/07/18 11:50 Gabapentin (Neurontin) 300 mg PO TID [facility] Stop: 06/07/18 15:01 Last Admin: 12/09/17 08:08 Dose: 300 mg Glucagon (Glucagen) 1 mg IM ONCE PRN PRN Reason: Hypoglycemia Stop: 06/07/18 11:58 Glucose (Gluctose) 15 gm PO ONCE PRN PRN Reason: Hypoglycemia Stop: 06/07/18 11:58 Glucose (Gluctose) 30 gm PO ONCE PRN PRN Reason: Hypoglycemia Stop: 06/07/18 11:58 Dextrose (Dextrose 5%) 1,000 mls @ 100 mls/hr IVC .Q10H PRN PRN Reason: HYPOGLYCEMIA Stop: 06/07/18 11:58 Sodium Chloride (0.9 % Sodium Chloride) 1,000 mls @ 50 mls/hr IVC .Q20H [facility] Stop: 12/10/17 19:44 Insulin Human Lispro (Humalog) 0 units SQ TIDAC [facility] PRN Reason: Protocol Stop: 06/07/18 16:31 Last Admin: 12/09/17 12:08 Dose: 6 units Insulin Human Lispro (Humalog) 0 units SQ [facility] PRN Reason: Protocol Stop: 06/07/18 21:01 Last Admin: 12/08/17 21:32 Dose: 4 units Metoprolol Succinate (Toprol Xl) 200 mg PO QAM [facility] Stop: 06/08/18 09:01 Last Admin: 12/09/17 08:08 Dose: 200 mg Multivitamins/Calcium (Thera M Plus) 1 tab PO QAM [facility] Stop: 06/08/18 09:01 Last Admin: 12/09/17 08:08 Dose: 1 tab Naloxone HCl (Narcan) 0.4 mg IVP Q2MIN PRN PRN Reason: Opioid Reversal Stop: 06/07/18 11:54 Nitroglycerin (Nitroglycerin) 0.5 inch TP Q6HNTG [facility] Stop: 06/09/18 21:16 Last Admin: 12/09/17 12:08 Dose: 0.5 inch Omeprazole (Prilosec) 20 mg PO QAM [facility] Stop: 06/08/18 09:01 Last Admin: 12/09/17 08:08 Dose: 20 mg Ondansetron HCl (Zofran) 4 mg IVP Q8HR PRN PRN Reason: Nausea And Vomiting Stop: 06/07/18 11:54 Ranolazine (Ranexa) 500 mg PO BID [facility] Stop: 06/09/18 21:01 Last Admin: 12/09/17 08:07 Dose: 500 mg Warfarin Sodium (Coumadin Perpt) 1 each PO DAILY@1800 PRN PRN Reason: SEE COMMENTS Stop: 06/07/18 18:01 Warfarin Sodium (Coumadin) 5 mg PO SuTuTh@1800 [facility] Stop: 06/07/18 18:01 Last Admin: 12/06/17 17:07 Dose: 5 mg Warfarin Sodium (Coumadin) 2.5 mg PO SuTuThSa@1800 [facility] Stop: 06/07/18 18:01 Last Admin: 12/06/17 17:07 Dose: 2.5 mg - Imaging and Cardiology Echo: report reviewed Other Results: 12 hour tele: avg HR=62 paced. - EKG Interpretation EKG results cardiology: personally reviewed Consult Discharge Plan - Plan Referrals: lAix Wolff DO [Primary Care Provider] -
--- NOTE | 2017-12-09 13:30 | Internal Med Progress Note ---
Date of Encounter: 12/09/17 Time of Encounter: 13:26 - Assessment and plan (1) Chest pain Current Visit: Yes Status: Acute Assessment and plan: So far negative Trop No acute ischemic changes on EKG does have multiple PVC's on monitor cont Metoprolol d/c Imdur since pt c/o head aches currently on Ranexa Held ARB's due to ALBA cont ASA Echo showed LVEF 50-55% Atypical septal motion noticed Card on board Recommend [facility].. when INR < 1.8, today @ 2.0 Cont holding Coumadin finished 3 doses of mucormyst Qualifiers: Chest pain type: other chest pain Qualified Code(s): R07.89 - Other chest pain; R07.8 - Other chest pain (2) Asoam-po-iaqfyru kidney injury Current Visit: Yes Status: Acute Assessment and plan: Multi factorial Dehydration + Medication ( Metformin + Cozaar ) 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 @ 1.2 Cr started improving will hold IVF for now avoid nephro toxic meds finished mucormyst Qualifiers: Acute renal failure type: unspecified Chronic kidney disease stage: stage 4 (severe) Qualified Code(s): N17.9 - Acute kidney failure, unspecified; N18.4 - Chronic kidney disease, stage 4 (severe); N18.4 - Chronic kidney disease , stage 4 (severe); N18.4 - Chronic kidney disease, stage 4 (severe); N18.4 - Chronic kidney disease, stage 4 (severe) (3) Diabetes Current Visit: Yes Status: Chronic Assessment and plan: on ISS Qualifiers: Diabetes mellitus type: type 2 Diabetes mellitus complication status: with kidney complications Diabetes mellitus complication detail: with chronic kidney disease Diabetes mellitus detention insulin use: without director long term care use Chronic kidney disease stage: stage 3 (moderate) Qualified Code(s): E11.22 - Type 2 diabetes mellitus with diabetic chronic kidney disease; N18.3 - Chronic kidney disease, stage 3 (moderate); N18.3 - Chronic kidney disease, stage 3 (moderate) (4) Ischemic cardiomyopathy Current Visit: Yes Status: Chronic (5) Hypertension Current Visit: Yes Status: Chronic Qualifiers: Hypertension type: essential hypertension Qualified Code(s): I10 - Essential (primary) hypertension (6) CAD (coronary artery disease) Current Visit: Yes Status: Chronic Qualifiers: Coronary Disease-Associated Artery/Lesion type: [place] artery [place] vs. transplanted heart: [place] heart Associated angina: with other forms of angina Qualified Code(s): I25.118 - Atherosclerotic heart disease of [place] coronary artery with other forms of angina pectoris (7) HLD (hyperlipidemia) Current Visit: Yes Status: Chronic Assessment and plan: on statin Qualifiers: Hyperlipidemia type: unspecified Qualified Code(s): E78.5 - Hyperlipidemia , unspecified (8) Afib Current Visit: Yes Status: Chronic Assessment and plan: HR controlled, continue BB Held Coumadin since he is going for [facility] Qualifiers: Atrial fibrillation type: chronic Qualified Code(s): I48.2 - Chronic atrial fibrillation (9) Constipation Current Visit: Yes Status: Acute Assessment and plan: started him on bowel regimen Qualifiers: Qualified Code(s): K59.00 - Constipation, unspecified - Subjective Interval history: Mr. Last is a 77 year old male with CAD s/p CABG/Multiple stents, ischemic CMP with ICD, Afib on warfarin, DM, HTN, CKD III He presented to the ER with complains of one day history of chest pain occurring at rest, said to feel "heavy like when I had m heart attacks", radiating to his left neck and moderately severe , pain is constant and has been relieved with medications in the ER, he states it wasn't relieved with his home dose of NTG. No known aggravating factors. He denies associated nausea, vomiting, diaphoresis, SOB. Pt was admitted in the hospital and placed him on tele and checked serial troponin. Pt denied any active chest pain now. Denied any SOB. No N/V. however he did have mild SOB last night after receiving Mucormyst liquid. - Constitutional Vitals: Temp Pulse Resp BP Pulse Ox 98.1 F 60 16 138/67 99 12/09/17 11:27 12/09/17 11:27 12/09/17 11:27 12/09/17 11:27 12/09/17 11:27 General appearance: Present: A&O X 3, pleasant, no acute distress, obese - Head Head exam: Present: atraumatic, normal inspection - Neck Neck exam general surgery: Present: supple - Respiratory Respiratory exam: Present: decreased breath sounds. Absent: rales, respiratory distress, rhonchi, wheezes - Cardiovascular Cardiovascular exam: Present: RRR, +S1, +S2. Absent: tachycardia - GI/Abdominal GI/Abdominal exam: Present: normal bowel sounds, soft. Absent: rebound, rigid, tenderness - Extremities Exam Extremities exam: Absent: calf tenderness, pedal edema, tenderness - Back Exam Back exam: Absent: CVA tenderness (L), CVA tenderness (R) - Psychiatric Psychiatric exam: Present: normal affect, normal mood Internal Medicine: Result - Labs CBC & Chem 7: 12/09/17 06:05 12/09/17 06:05 Labs: Short CBC 12/09/17 Range/Units 06:05 WBC 4.4 (4.3-11.1) K/mcL Hgb 11.1 L (12.9-16.9) g/dL Hct 32.8 L (37.5-50.1) % Plt Count 125 L (140-400) K/mcL Neutrophils # 3.0 (1.6-8.9) K/mcL BMP 12/09/17 06:05 Sodium 141 Potassium 3.7 Chloride 112 H Carbon Dioxide 23 BUN 15 Creatinine 1.34 H Glucose 123 H Calcium 9.0 Cardiac Enzymes 12/08/17 Range/Units 20:56 Troponin I < 0.03 (< 0.04) ng/mL - ABG Interpretation ABG results: PT/INR, D-dimer PT 22.4 Seconds (9.4-12.1) H 12/09/17 06:05 Consult Discharge Plan - Plan Referrals: Alix Wolff DO [Primary Care Provider] -
[2017-12-09] MEDS ORDERED: Sennosides/Docusate Sodium TABLET PO PRN (13:32)
[2017-12-09] MEDS ORDERED: 0.9 % Sodium Chloride 1,000 ML IVC SCH (23:45)
[2017-12-10 02:59] LABS: Eosinophils # 0.1 K/mcL (0.0-0.6); Eosinophils % 2.7 %; Hematocrit 31.7 % (37.5-50.1); Hemoglobin 10.5 g/dL (12.9-16.9); Immature Granulocytes % 0.2 % (0-4); Lymphocytes % 25.7 %; Mean Corpuscular HGB Conc 33.1 g/dL (31.6-35.5); Mean Corpuscular Hemoglobin 30.7 pg (28.0-33.3); Mean Corpuscular Volume 92.7 fL (83.0-100.0); Mean Platelet Volume 11.3 fL (9.4-12.4); Monocytes # 0.4 K/mcL (0.0-1.3); Monocytes % 10.1 %; Neutrophils # 2.5 K/mcL (1.6-8.9); Platelet Count 112 K/mcL (140-400); Red Blood Count 3.42 M/mcL (4.19-5.50); Red Cell Distribution Width 13.9 % (11.5-14.5); Segmented Neutrophils % 61.3 %
[2017-12-10 03:10] LABS: INR 1.8; Prothrombin Time 20.1 Seconds (9.4-12.1)
[2017-12-10 03:16] LABS: Calcium 8.8 mg/dL (8.6-10.3)
[2017-12-10] MEDS: Nitroglycerin 1 INCH/GM PACKET TP SCH ×2 (05:40→11:14)
[2017-12-10] MEDS: Aspirin Enteric Coated 81 MG Tablet PO SCH (08:36)
[2017-12-10] MEDS: Insulin LISPRO 300 UNITS/3 ML VIAL SQ SCH ×4 (08:36→19:25)
[2017-12-10] MEDS: Gabapentin 300 MG CAPSULE PO SCH ×3 (08:36→19:25)
[2017-12-10] MEDS: Multivit/Ca/Min/Fe/FA 1 TAB TABLET PO SCH (08:37)
[2017-12-10] MEDS: Ranolazine 500 MG TAB.ER.12H PO SCH ×2 (08:38→19:25)
[2017-12-10] MEDS: Metoprolol XL (24 HR) Succ 50 MG TAB.ER.24H PO SCH (08:38)
[2017-12-10] MEDS: amLODIPine 5 MG TABLET PO SCH (08:38)
--- NOTE | 2017-12-10 08:41 | Internal Med Progress Note ---
Date of Encounter: 12/10/17 Time of Encounter: 08:39 - Assessment and plan (1) Chest pain Current Visit: Yes Status: Acute Assessment and plan: So far negative Trop No acute ischemic changes on EKG cont Metoprolol d/c Imdur since pt c/o head aches currently on Ranexa Held ARB's due to ALBA cont ASA Echo showed LVEF 50-55% Atypical septal motion noticed Card on board scheduled for [facility] today Cont holding Coumadin finished 3 doses of mucormyst Qualifiers: Chest pain type: other chest pain Qualified Code(s): R07.89 - Other chest pain; R07.8 - Other chest pain (2) Xhbvi-no-yikejjo kidney injury Current Visit: Yes Status: Acute Assessment and plan: Multi factorial Dehydration + Medication ( Metformin + Cozaar ) 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 @ 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 Cr now stable around 1.4 started on gentle IV hydration - since pt is going for [facility] today avoid nephro toxic meds finished mucormyst Qualifiers: Acute renal failure type: unspecified Chronic kidney disease stage: stage 4 (severe) Qualified Code(s): N17.9 - Acute kidney failure, unspecified; N18.4 - Chronic kidney disease, stage 4 (severe); N18.4 - Chronic kidney disease , stage 4 (severe); N18.4 - Chronic kidney disease, stage 4 (severe); N18.4 - Chronic kidney disease, stage 4 (severe) (3) Diabetes Current Visit: Yes Status: Chronic Assessment and plan: on ISS Qualifiers: Diabetes mellitus type: type 2 Diabetes mellitus complication status: with kidney complications Diabetes mellitus complication detail: with chronic kidney disease Diabetes mellitus termination clerk insulin use: without termination clerk use Chronic kidney disease stage: stage 3 (moderate) Qualified Code(s): E11.22 - Type 2 diabetes mellitus with diabetic chronic kidney disease; N18.3 - Chronic kidney disease, stage 3 (moderate); N18.3 - Chronic kidney disease, stage 3 (moderate) (4) Ischemic cardiomyopathy Current Visit: Yes Status: Chronic (5) Hypertension Current Visit: Yes Status: Chronic Assessment and plan: Fairly controlled on Metoprolol + Norvasc Held ARB's due to [facility] with CKD-2 Held Imdur for headaches.. but after [facility] will resume his home dose of Imdur Use Hydralazine IV PRN Qualifiers: Hypertension type: essential hypertension Qualified Code(s): I10 - Essential (primary) hypertension (6) CAD (coronary artery disease) Current Visit: Yes Status: Chronic Qualifiers: Coronary Disease-Associated Artery/Lesion type: [place] artery [place] vs. transplanted heart: [place] heart Associated angina: with other forms of angina Qualified Code(s): I25.118 - Atherosclerotic heart disease of [place] coronary artery with other forms of angina pectoris (7) HLD (hyperlipidemia) Current Visit: Yes Status: Chronic Assessment and plan: on statin Qualifiers: Hyperlipidemia type: unspecified Qualified Code(s): E78.5 - Hyperlipidemia , unspecified (8) Afib Current Visit: Yes Status: Chronic Assessment and plan: HR controlled, continue BB Held Coumadin since he is going for [facility] Qualifiers: Atrial fibrillation type: chronic Qualified Code(s): I48.2 - Chronic atrial fibrillation (9) Constipation Current Visit: Yes Status: Acute Assessment and plan: started him on bowel regimen Qualifiers: Qualified Code(s): K59.00 - Constipation, unspecified - Subjective Interval history: Mr. Last is a 77 year old male with CAD s/p CABG/Multiple stents, ischemic CMP with ICD, Afib on warfarin, DM, HTN, CKD III He presented to the ER with complains of one day history of chest pain occurring at rest, said to feel "heavy like when I had m heart attacks", radiating to his left neck and moderately severe , pain is constant and has been relieved with medications in the ER, he states it wasn't relieved with his home dose of NTG. No known aggravating factors. He denies associated nausea, vomiting, diaphoresis, SOB. Pt was admitted in the hospital and placed him on tele and checked serial troponin. Pt denied any active chest pain now. Denied any SOB. No N/V. He still c/o mild headaches - Constitutional Vitals: Temp Pulse Resp BP Pulse Ox 98.1 F 63 18 150/71 97 12/10/17 06:26 12/10/17 06:26 12/10/17 06:26 12/10/17 06:26 12/10/17 06:26 General appearance: Present: A&O X 3, pleasant, no acute distress, obese - Head Head exam: Present: atraumatic, normal inspection - Neck Neck exam general surgery: Present: supple - Respiratory Respiratory exam: Present: decreased breath sounds. Absent: rales, respiratory distress, rhonchi, wheezes - Cardiovascular Cardiovascular exam: Present: RRR, +S1, +S2. Absent: tachycardia - GI/Abdominal GI/Abdominal exam: Present: normal bowel sounds, soft. Absent: rebound, rigid, tenderness - Extremities Exam Extremities exam: Absent: calf tenderness, pedal edema, tenderness - Back Exam Back exam: Absent: CVA tenderness (L), CVA tenderness (R) - Neurological Exam Neurological exam: Present: alert, oriented X3 - Psychiatric Psychiatric exam: Present: normal affect, normal mood Internal Medicine: Result - Labs CBC & Chem 7: 12/10/17 02:16 12/10/17 02:16 Labs: Short CBC 12/10/17 Range/Units 02:16 WBC 4.0 L (4.3-11.1) K/mcL Hgb 10.5 L (12.9-16.9) g/dL Hct 31.7 L (37.5-50.1) % Plt Count 112 L (140-400) K/mcL Neutrophils # 2.5 (1.6-8.9) K/mcL BMP 12/10/17 02:16 Sodium 138 Potassium 4.0 Chloride 111 H Carbon Dioxide 22 L BUN 19 Creatinine 1.44 H Glucose 202 H Calcium 8.8 - ABG Interpretation ABG results: PT/INR, D-dimer PT 20.1 Seconds (9.4-12.1) H 12/10/17 02:16 Consult Discharge Plan - Plan Referrals: Alix Wolff DO [Primary Care Provider] -
--- NOTE | 2017-12-10 09:21 | Pre-Sedation Evaluation ---
Pre-sedation evaluation - Pre-sedation checklist Date of procedure: 12/10/17 Procedure: heart cath Recent Vitals: Last Vital Signs Temp 98.1 F 12/10/17 06:26 Pulse 63 12/10/17 06:26 Resp 18 12/10/17 06:26 BP 150/71 12/10/17 06:26 Pulse Ox 97 12/10/17 08:45 H&P (including ROS) documented in medical record: Yes Previous reaction to sedatives/anesthetics: No Dietary Status: NPO after Midnight Dentition: full dentition ASA Classification *see protocol: CLASS II-Mild systemic disease Plan of Care: Pt appropriate candidate for procedure/moderate/conscious sedation
[2017-12-10] MEDS ORDERED: *HR* Heparin 10,000 UNIT/10 ML VIAL ONE (13:13)
[2017-12-10] MEDS ORDERED: Heparin 1,000 UNITS/500 mL 500 ML ONE (13:13)
[2017-12-10] MEDS ORDERED: Nitroglycerin 1,000 MCG/10 ML VIAL IV ONE (13:13)
[2017-12-10] MEDS ORDERED: 0.9 % Sodium Chloride 1,000 ML ONE ×2 (13:13→13:49)
[2017-12-10] MEDS ORDERED: *HR* Midazolam HCl 2 MG/2 ML VIAL ONE (13:49)
[2017-12-10] MEDS ORDERED: *HR* FentaNYL (PF) 100 MCG/2 ML VIAL ONE (13:49)
--- NOTE | 2017-12-10 14:31 | Event Note ---
Date of Encounter: 12/10/17 Time of Encounter: 14:27 - Cardiology Event Note LHC completed without intervention--final report pending. Recommend continued medical management--ASA, Statin, BB, CCB, Ranexa. Did not tolerate increased Imdur dose due to headaches, but will resume at dose of 90mg/daily, which was his home dose. Will coordinate outpt follow-up in 3-4 weeks. Resume Coumadin. Cardiology signing off. Reconsult PRN.
--- NOTE | 2017-12-10 14:52 | Invasive Diagnostic Lab Proc ---
Name: Salvador Last Date of Study: 12/10/2017 Date: 1940 Ht: 72.8in Medical Record#: [id number] Age: 77 Wt: 235.45lb Gender: Male BSA: 2.3 Order #: [id number] BMI: 31.24 Physicians Procedure Physician: Rica Padgett MD Referring MD: Referring MD: Staff Name Position Time In Mariana Couch RT (R) Monitor 01:55 PM Jumana Delacruz RN Hydraulic Strainer Operator 01:55 PM Gema Cullen RT Scrub 01:55 PM Indications Indication Unstable Angina Procedures Performed Procedure L HRT ART/GRFT ANGIO Pre-Procedure Checklist Informed consent is complete signed and on chart. H&P is on chart. ID band is on and ID verified with patient. Patient NPO for procedure The procedure was described for the patient and questions were answered. Blood Pressure: 150/71 ECG is on chart. Rhythm: Atrial Fibrillation Plan of Care Patient will tolerate the procedure without complications. Adequate level of comfort will be maintained. Hemodynamics will remain stable Patient will recover from procedure without complications. Respiratory function will be maintained. Cardiac rhythm will remain stable. Patient temperature will be maintained. Patient and/or family have verbalized understanding of the procedure. Patient Education Chief Complaint/Reason for Test: Cardiac Cath Developmental Category: Geriatric (65+ years) Developmentally Appropriate for Age: Yes Learning Barriers: None Education Needs: Procedure Education Method: Verbal Information Taught: Cardiac Cath Educational Evaluation: Able to repeat information Intravenous Access Time IV Size Location DC'd Fluid/Drip Rate Units RN 01:07 PM 18g 1 11/15" Patent On Arrival Rt Arm 0.9NaCl 25 ml/hr Jumana Delacruz RN Allergies No Known Allergies Vital Signs Time BP (mmHg) HR (bpm) O2 Sat. RR (bpm) LOC 01:07 PM 150 / 71 63 97 % 18 5 = Fully awake and oriented or at pre-proc level 01:57 PM / % 4 = Oriented but drowsy 01:57 PM 155 / 81 61 98 % 14 02:02 PM 159 / 79 60 99 % 19 02:07 PM 158 / 85 60 97 % 26 02:12 PM 151 / 80 60 98 % 21 02:17 PM 157 / 81 59 97 % 16 02:22 PM 151 / 79 60 98 % 11 02:27 PM 155 / 83 60 98 % 37 02:32 PM 147 / 81 60 96 % 14 02:37 PM 156 / 80 60 98 % 17 Procedural Medications Time Medication Dose Units Method Given By 01:56 PM Oxygen 2 L/min nasal cannula Jumana Delacruz RN 01:57 PM Versed 1 mg Intravenous Jumana Delacruz RN 02:00 PM Lidocaine 2% 10 ml Subcutaneous Rica Padgett MD 02:11 PM Heparin 1000 units Intravenous Jumana Delacruz RN ASA Classification: CLASS II- Mild systemic disease (i.e. well-controlled diabetes, hypertension, asthma, cigarette smoking) Faustino Score Preprocedure Postprocedure Activity 2- Moves 4 extremities sustained head lift Activity 2- Moves 4 extremities sustained head lift Circulation 2- SBP +/= 20 points of pre-anesthetic level Circulation 2- SBP +/= 20 points of pre-anesthetic level Consciousness 2- Awake and alert oriented x 3 Consciousness 2- Awake and alert oriented x 3 O2 Saturation 2- Able to maintain O2 satruation of 92% on room air O2 Saturation 2- Able to maintain O2 satruation of 92% on room air Respiratory 2- Able to deep breathe and cough well Respiratory 2- Able to deep breathe and cough well Total Score 10 Total Score 10 Contrast Agent: Isovue Diagnostic Contrast: 63 ml Total Contrast: 63 ml Fluoro Dose: 453 mGy Activated Clotting Time Time Seconds to Clot 02:26 PM 166 Procedure Log Time Note Enter By 01:54 PM CathStat 01:54 PM Vitals capture started with the following parameters, Patient=Adult, Interval=5 min, Initial Fuhujcnj=999 mmHg, Deflation Rate=5 mmHg, Cuff placed on Right Arm 01:55 PM Pt arrived to laboratory mechanic helper 2 at 13:55 [email or web address] 01:55 PM Mariana Couch RT (R) Position: Monitor Time in: 13:55 [email or web address] 01:55 PM Jumana Delacruz RN Position: Hydraulic Strainer Operator Time in: 13:55 [email or web address] 01:55 PM Gema Cullen RT Position: Scrub Time in: 13:55 [email or web address] 01:55 PM Patient charges- Angio tray pack, Navilyst 3mm J, Pulse Oximetry and ACIST tubing and transducer [email or web address] 01:56 PM Case Delayed No [email or web address] 01:56 PM Hair removed from procedure site in holding area using clippers. Bilateral groin prepped with Chloraprep by Destiney Trujillo MD, [facility], safety strap applied then patient was draped. Skin intact. PM Physician arrived 13:56 PM ASA Class CLASS II- Mild systemic disease (i.e. well-controlled diabetes, hypertension, asthma, cigarette smoking) kk Meet and greet completed Sign in performed according to hospital policy. PM Procedure start : Time: : Oxygen on at 2 L/min per nasal cannula by Jumana Delacruz RN Time: Versed 1 mg Intravenous Given by Jumana Delacruz RN PM Vitals capture started with the following parameters, Patient=Adult, Interval=5 min, Initial Tddrmyia=201 mmHg, Deflation Rate=5 mmHg, Cuff placed on Right Arm PM Time: 501:57 Fentanyl 50 mcg Intravenous Given by Jumana Delacruz RN [facility] Time: :57 Patient comfortable and pain free: Yes Time: :LOC: 4 = Oriented but drowsy PM Recorded ECG: HR=64 Condition=Condition 1 :57 PM HR=61 bpm, TCVA=503/81 mmhg, SpO2=98.0 %, Resp=14 B/min 01:59 PM Pressure channel 1 zeroed. 02:00 PM Time out performed according to hospital policy [email or web address] 02:00 PM Time: 14:00 10 ml Lidocaine 2% to right groin Subcutaneous Given by Rica Padgett MD [email or web address] 02:02 PM Micro-Introducer Kit utilized for sheath placement [email or web address] 02:02 PM HR=60 bpm, ETDG=238/79 mmhg, SpO2=99.0 %, Resp=19 B/min, Comment=A-fib 02:03 PM 3 mls of contrast injected into Rt groin. [email or web address] 02:03 PM Access obtained by percutaneous puncture. 6Fr 10cm Terumo [place] sheath placed in left Femoral artery. [id number] [email or web address] 02:04 PM 0.035 145cm Navilyst 3mmJ wire [id number] [email or web address] 02:05 PM 5Fr FR 4 catheter inserted over the wire DN [email or web address] 02:05 PM RCA angiography performed in multiple views. [email or web address] 02:06 PM Recorded Pressure: Ao, HR=60, Condition=Condition 1 (Aorta) Ao 145/84/111 02:07 PM Catheter repositioned for grafts. [email or web address] 02:07 PM HR=60 bpm, MBDT=614/85 mmhg, SpO2=97.0 %, Resp=26 B/min, Comment=A-fib 02:08 PM SVG to the 1st Diagonal angio performed in multiple views. [email or web address] 02:09 PM Left TIFFANIE to the LAD angio performed in multiple views. [email or web address] 02:10 PM Recorded Pressure: Ao, HR=60, Condition=Condition 1 (Aorta) Ao 160/73/107 02:10 PM Catheter removed [email or web address] 02:11 PM Time: 14:11 Heparin 1000 units Intravenous Given by Jumana Delacruz RN [email or web address] 02:12 PM 0.035 260cm Navilyst 3mmJ wire [id number] [email or web address] 02:12 PM HR=60 bpm, XGTI=783/80 mmhg, SpO2=98.0 %, Resp=21 B/min, Comment=A-fib 02:13 PM 5Fr FL 4 catheter inserted over the wire DN [email or web address] 02:13 PM LCA angiography performed in multiple views. [email or web address] 02:14 PM Recorded Pressure: Ao, HR=60, Condition=Condition 1 (Aorta) Ao 147/80/108 02:15 PM Lesion found in LMCA. Pre Stenosis: 50 Pre JOHN Flow: 3: Complete and Brisk Flow/Perfusion [email or web address] 02:15 PM Lesion found in Proximal LAD. Pre Stenosis: 70 Pre JOHN Flow: 3: Complete and Brisk Flow/Perfusion [email or web address] 02:16 PM Lesion found in Proximal Circumflex. Pre Stenosis: 100 Pre JOHN Flow: 0: No Flow/No perfusion [email or web address] 02:16 PM Catheter removed [email or web address] 02:16 PM 5Fr IM catheter inserted over the wire [id number] [email or web address] 02:17 PM Wire removed [email or web address] 02:17 PM 0.035 260cm Glidewire wire [id number] [email or web address] 02:17 PM Left TIFFANIE to the LAD angio performed in multiple views. [email or web address] 02:17 PM HR=59 bpm, QHXA=746/81 mmhg, SpO2=97.0 %, Resp=16 B/min, Comment=A-fib 02:19 PM Catheter removed [email or web address] 02:19 PM 5Fr Pigtail catheter inserted over the wire DNC 3 02:19 PM Catheter selectively placed in left ventricle [email or web address] 02:20 PM Recorded Pressure: LV, HR=60, Condition=Condition 1 (Left Ventricle) LV 156/20/23 02:20 PM Recorded Pressure: LV, Ao, HR=60, Condition=Condition 1 (Left Ventricle) LV 157/17/23, (Aorta) Ao 168/9/79 02:21 PM Catheter removed [email or web address] 02:22 PM HR=60 bpm, IRML=229/79 mmhg, SpO2=98.0 %, Resp=11 B/min, Comment=A-fib 02:24 PM Procedure completed at 14:24 [email or web address] 02:25 PM Coronary Dominance: right [email or web address] 02:25 PM Sign out completed: Radiation Dose 453. mGy Fluoro Time: Isovue 370 - 200ml contrast ml given by Rica Padgett MD. Complications: NoneCardiac Rehab Consult needed: Confirmed administered medications: [email or web address] 02:25 PM Sign out completed: Radiation Dose 453.39 mGy Fluoro Time: 7.4 Isovue 370 - 200ml contrast 63 ml given by Rica Padgett MD. Complications: NoneCardiac Rehab Consult needed: NoConfirmed administered medications: Yes [email or web address] 02:25 PM Isovue 370 - 200ml,1 Bottle(s) used. [email or web address] 02:26 PM Arterial sheath pulled using manual compression and V+ Pad for 15 minutes by Gema Cullen RT [email or web address] 02:26 PM Estimated Blood Loss: minimal [email or web address] 02:26 PM Post ECG Atrial Fibrillation [email or web address] 02:27 PM Post Blood Pressure 151/79 [email or web address] 02:27 PM Information taught Cardiac Cath [email or web address] 02:27 PM Education needs Procedure, Plan of Care, and Disease Process [email or web address] 02:27 PM HR=60 bpm, NHAV=267/83 mmhg, SpO2=98.0 %, Resp=37 B/min, Comment=A-fib 02:27 PM Learning barriers :None [email or web address] 02:28 PM Education Methods Verbal [email or web address] 02:28 PM Education evaluation Able to repeat information [email or web address] 02:28 PM Delay to floor No [email or web address] 02:29 PM Family placed in consult room. [email or web address] 02:29 PM Complications: None [email or web address] 02:29 PM Fluoro Time: 7.4 [email or web address] 02:29 PM Isovue 370 - 200ml contrast 63 ml given by Rica Padgett MD. [email or web address] 02:29 PM Radiation Dose 453.39 mGy [email or web address] 02:32 PM HR=60 bpm, YJXG=525/81 mmhg, SpO2=96.0 %, Resp=14 B/min, Comment=A-fib 02:37 PM HR=60 bpm, TIEB=527/80 mmhg, SpO2=98.0 %, Resp=17 B/min, Comment=A-fib 02:41 PM Site status No bleeding/hematoma - Rt Groin as reported by Gema Cullen RT at 14:40 [email or web address] 02:41 PM Opsite applied [email or web address] 02:43 PM Report given to Debi MANCIA Pt taken to 2A Room #35. 14:43 [email or web address] 02:43 PM Patient out of room: 14:43 [email or web address] Complications Complication None None None Hemodynamics Pressures Site Systolic/A Wave Diastolic/V Wave Mean AO 145 84 111 AO 160 73 107 AO 147 80 108 LV 156 20 23 LV 157 17 23 AO 168 9 79 Post Procedure Information Blood Pressure: 151/79 mmHg Rhythm: Atrial Fibrillation Post procedural instructions were not given Site Checks Time Location Status Staff Sheath In? Note 02:40 PM Rt Groin No bleeding/hematoma Gema Cullen RT Pulses Time Site Pre-Procedure Post-Procedure Note 12/10/2017 1:07:00 PM Bilateral radial 2+ 2+ 12/10/2017 1:07:00 PM Bilateral DP 1+ 1+ Updated by Mariana Couch, RT(R) on 12/10/2017 2:45:12 PM electronically signed on 12/10/2017 2:46:07 PM with status of Final
[2017-12-10] MEDS: Acetaminophen 325 MG TABLET PO PRN ×2 (15:12→21:43)
[2017-12-10] MEDS: *HR* HYDROcodone/Acet 5/325 mg TABLET PO PRN (19:25)
[2017-12-11 05:45] LABS: Basophils % 0.2 %; Eosinophils # 0.1 K/mcL (0.0-0.6); Eosinophils % 2.8 %; Hematocrit 32.5 % (37.5-50.1); Hemoglobin 10.9 g/dL (12.9-16.9); Immature Granulocytes % 0.2 % (0-4); Lymphocytes % 23.1 %; Mean Corpuscular HGB Conc 33.5 g/dL (31.6-35.5); Mean Corpuscular Hemoglobin 31.1 pg (28.0-33.3); Mean Corpuscular Volume 92.6 fL (83.0-100.0); Monocytes # 0.4 K/mcL (0.0-1.3); Monocytes % 9.9 %; Neutrophils # 2.7 K/mcL (1.6-8.9); Platelet Count 123 K/mcL (140-400); Red Blood Count 3.51 M/mcL (4.19-5.50); Segmented Neutrophils % 63.8 %
[2017-12-11 05:50] LABS: INR 1.6; Prothrombin Time 17.2 Seconds (9.4-12.1)
[2017-12-11 06:11] LABS: Calcium 8.7 mg/dL (8.6-10.3)
[2017-12-11 07:13] VITALS: BP 160/72
[2017-12-11] MEDS: Insulin LISPRO 300 UNITS/3 ML VIAL SQ SCH (07:30)
[2017-12-11] MEDS ORDERED: Isosorbide MONOnitrate (24 HR) 30 MG TAB.ER.24H PO SCH (09:00)
--- NOTE | 2017-12-11 09:26 | Discharge Summary ---
<MioDionisio rosario - Last Filed: 12/11/17 09:19> Date of Encounter: 12/11/17 Time of Encounter: 09:19 - Discharge Diagnosis (1) Chest pain Priority: Primary Status: Acute Qualifiers: Chest pain type: other chest pain Qualified Code(s): R07.89 - Other chest pain; R07.8 - Other chest pain (2) Ischemic cardiomyopathy Priority: Secondary Status: Chronic (3) Hypertension Priority: Secondary Status: Chronic Qualifiers: Hypertension type: essential hypertension Qualified Code(s): I10 - Essential (primary) hypertension (4) CAD (coronary artery disease) Priority: Secondary Status: Chronic Qualifiers: Coronary Disease-Associated Artery/Lesion type: [place] artery [place] vs. transplanted heart: [place] heart Associated angina: with other forms of angina Qualified Code(s): I25.118 - Atherosclerotic heart disease of [place] coronary artery with other forms of angina pectoris (5) DVT prophylaxis Priority: Secondary Status: Acute (6) HLD (hyperlipidemia) Priority: Secondary Status: Chronic Qualifiers: Hyperlipidemia type: unspecified Qualified Code(s): E78.5 - Hyperlipidemia , unspecified (7) Afib Priority: Secondary Status: Chronic Qualifiers: Atrial fibrillation type: chronic Qualified Code(s): I48.2 - Chronic atrial fibrillation (8) Heqfy-lg-rhfvgbi kidney injury Priority: Secondary Status: Acute Qualifiers: Acute renal failure type: unspecified Chronic kidney disease stage: stage 4 (severe) Qualified Code(s): N17.9 - Acute kidney failure, unspecified; N18.4 - Chronic kidney disease, stage 4 (severe); N18.4 - Chronic kidney disease , stage 4 (severe); N18.4 - Chronic kidney disease, stage 4 (severe); N18.4 - Chronic kidney disease, stage 4 (severe) (9) Constipation Priority: Secondary Status: Acute Qualifiers: Qualified Code(s): K59.00 - Constipation, unspecified - Discharge Medications Prescriptions: Aspirin Enteric Coated [Aspirin EC] 81 mg PO DAILY #30 tab Ranolazine [Ranexa] 500 mg PO BID #28 tab Home Medications: Clopidogrel [Plavix] 75 mg PO QAM 07/23/15 [History] Docusate [Colace] 100 mg PO QAM PRN 07/23/15 [History] Gabapentin [Neurontin] 300 mg PO TID 07/23/15 [History] Multivitamin/Iron/Folic Acid [Centrum Complete Multivit Tab] 1 tab PO QAM [History] Nitroglycerin [Nitrostat] 0.4 mg SL AD PRN 07/23/15 [History] Pantoprazole Sodium 40 mg PO QAM 07/23/15 [History] Isosorbide MONOnitrate (24 HR) [Imdur] 90 mg PO DAILY #30 tab.er.24h 01/01/16 [ Rx] Furosemide [Lasix] 80 mg PO BID #6 tab 02/22/16 [Rx] Atorvastatin [Lipitor] 40 mg PO HS 05/16/16 [History] Glimepiride [Amaryl] 8 mg PO DAILY 05/16/16 [History] Losartan Potassium [Cozaar] 100 mg PO DAILY 05/16/16 [History] Metformin HCl [Glucophage] 1,000 mg PO BIDWM 05/16/16 [History] Metoprolol Succinate 200 mg PO QAM 05/16/16 [History] Potassium Chloride [K-Tab ER] 10 meq PO DAILY 05/16/16 [History] amLODIPine [Norvasc] 10 mg PO DAILY #60 tablet 05/18/16 [Rx] Lamivudine [Epivir Hbv] 100 mg PO DAILY 12/06/17 [History] Warfarin [Coumadin] 2.5 mg PO MOWEFRSA@1800 12/06/17 [History] Warfarin [Coumadin] 5 mg PO SUTUTH@1800 12/06/17 [History] Aspirin Enteric Coated [Aspirin EC] 81 mg PO DAILY #30 tab 12/11/17 [Rx] Ranolazine [Ranexa] 500 mg PO BID #28 tab 12/11/17 [Rx] Allergies/Adverse Reactions: 3 Allergy/AdvReac Type Severity Reaction Status Date / Time acetylcysteine Allergy Swelling Verified 12/10/17 21:45 [From Mucomyst] of Lip/Tongue/Throat Procedures/tests Complete & Pending: Procedures Performed prior 72 hours Category Date Time Status CL Cardiac Catheterization [CL] Routine Nutrient Management Specialist 12/10/17 08:37 Ordered EKG [ECG 12 lead ECG] [ECG] Stat Y 12/08/17 20:42 Completed Date of admission: 12/06/17 13:35 Primary care physician: Alix Wolff Consults: 12/07/17 11:18 Consult to Cardiology [CONS] Routine Comment: Consulting Provider: Gianna Cardenas Reason for Consult: Acute chest pain Call Completed: Yes Discharging clinician: Dionisio Mcmillan Anticipated date of discharge: 12/11/17 - Patient Status Disposition: Home, Self-Care Condition: Good Functional capacity at discharge: independent ambulation Overall status at discharge: patient is back to baseline - Discharge Instructions Instructions: Left Heart Catheterization (DC) Follow Up With: Gianna Cardenas [Provider Group] (office will call you with an appointment date and time) MariellaAlix DO Pily [Primary Care Provider] - 12/18/17 8:00 am Additional Instructions: Please take all medication as prescribed at follow up with your PCP and assistant store director after discharge. - Diet and Activity Activity: increase activity as tolerated, resume usual activities as tolerated Diet: low salt diet Hospital course: Mr. Last is a 77 year old male with a PMHx of CAD s/p CABG and multiple stents, ischemic CMP with ICD, AFIb, DM, CKD III presented to ED with a complaint of chest heaviness with radiated to his neck without NTG relief. Vitals on presentation were unremarkable. Troponin was trended x 3 and was negative. Labs significant for ALBA on CKD with Cr of 2.14. Remainder at baseline. EKG at baseline, Echo showed EF 50-55% with atypical septal motion. Cardiology was consulted and he was admitted to hospital for Anginal chest pain and ALBA on CKD. During course of hospital stay, patient gradually improved. He underwent left heart catheterization on 12/10/17 without intervention. Cardiology recommended continuing optimal medical therapy. ALBA improved with gentle fluids. Retroperitoneal US showed increased echogenicity consistent with renal disease, otherwise unremarkable. On day of discharge, labs and vitals were at baseline. He was asymptomatic and is medically stable for discharge. All questions were answered and he was instructed to follow up with PCP and assistant store director as outpatient. - Time Spent with Patient Total time spent providing and/or coordinating discharge services: - Constitutional Vitals: Temp Pulse Resp BP Pulse Ox 98.0 F 60 16 160/72 96 12/11/17 07:09 12/11/17 07:09 12/11/17 07:09 12/11/17 07:09 12/11/17 07:09 General appearance: Present: A&O X 3, pleasant, no acute distress, obese Exam: Gen.: Vitals noted. No acute distress. AAOx3 HEENT: PERRL/EOMI, oropharynx clear, Normocephalic, atraumatic, MMM Cardiac: RRR, no murmur, +S1/S2 Pulmonary: CTA bilaterally, no wheezes, rales or rhonchi, equal chest expansion Abdomen: soft, nontender, BS noted, no guarding MSK: ROM intact, no joint swelling noted Extremities: no BLE edema, nontender calf, no cyanosis or clubbing Neuro: A&Ox3, moves all extremities, no focal deficits Psych: Appropriate mood and behavior <Rene Mancilla P - Last Filed: 12/11/17 18:51> Date of Encounter: 12/11/17 Procedures/tests Complete & Pending: Procedures Performed prior 72 hours Category Date Time Status CL Cardiac Catheterization [CL] Routine Nutrient Management Specialist 12/10/17 08:37 Ordered EKG [ECG 12 lead ECG] [ECG] Stat Y 12/08/17 20:42 Completed Date of admission: 12/06/17 13:35 Primary care physician: Alix Wolff Consults: 12/07/17 11:18 Consult to Cardiology [CONS] Routine Comment: Consulting Provider: Cardiology Theresa Reason for Consult: Acute chest pain Call Completed: Yes Hospital course: Mr. Last is a 77 year old male - Time Spent with Patient Total time spent providing and/or coordinating discharge services: - Constitutional Vitals: Temp Pulse Resp BP Pulse Ox 98.0 F 60 16 160/72 96 12/11/17 07:09 12/11/17 07:09 12/11/17 07:09 12/11/17 07:09 12/11/17 07:09 - Attending Attestation I examined this patient and my medical decision-making was reviewed with the Resident Physician. I agree with the documented findings, disposition and treatment plan as described except to the extent set forth below.
[2017-12-11] MEDS: Metoprolol XL (24 HR) Succ 50 MG TAB.ER.24H PO SCH (10:33)
[2017-12-11] MEDS: Aspirin Enteric Coated 81 MG Tablet PO SCH (10:34)
[2017-12-11] MEDS: Ranolazine 500 MG TAB.ER.12H PO SCH (10:34)
[2017-12-11] MEDS: Gabapentin 300 MG CAPSULE PO SCH (10:34)
[2017-12-11] MEDS: amLODIPine 5 MG TABLET PO SCH (10:34)
[2017-12-11] MEDS: Multivit/Ca/Min/Fe/FA 1 TAB TABLET PO SCH (10:35)
--- NOTE | 2017-12-11 17:17 | Electrocardiograph Report ---
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
[2017-12-11] MEDS ORDERED: *HR* Warfarin 5 MG TABLET PO ONE (18:00)
== END 2017-12-11 11:30 | disposition home or self-care (01) ==
LOC: EMEROO 09:28 → 3NENU 09:28 → SUATTDRO 13:35 → 3NENU 14:42 → 2ANU 12-10 10:20
PROVIDERS: ADMIT Internal Medicine; ATTEND Internal Medicine

== ENCOUNTER 2020-06-22 15:39 | Inpatient (IN) ==
[2020-06-22] MEDS ORDERED: *HR* FentaNYL (PF) 100 MCG/2 ML VIAL IVP ONE (16:22)
[2020-06-22] MEDS ORDERED: Tdap (Boostrix) Vaccine 0.5 ML SYRINGE IM ONE (16:22)
[2020-06-22 17:05] LABS: Basophils % 0.1 %; Eosinophils # 0.2 K/mcL (0.0-0.6); Eosinophils % 2.6 %; Hematocrit 35.8 % (37.5-50.1); Hemoglobin 12.5 g/dL (12.9-16.9); Immature Granulocytes % 0.9 % (0-4); Lymphocytes # 1.3 K/mcL (0.6-4.6); Lymphocytes % 19.5 %; Mean Corpuscular HGB Conc 34.9 g/dL (31.6-35.5); Mean Corpuscular Hemoglobin 32.9 pg (28.0-33.3); Mean Corpuscular Volume 94.2 fL (83.0-100.0); Mean Platelet Volume 11.5 fL (9.4-12.4); Monocytes # 0.4 K/mcL (0.0-1.3); Neutrophils # 4.8 K/mcL (1.6-8.9); Platelet Count 111 K/mcL (140-400); Red Cell Distribution Width 12.5 % (11.5-14.5); Segmented Neutrophils % 70.9 %; White Blood Count 6.8 K/mcL (4.3-11.1)
[2020-06-22 17:17] LABS: BUN/Creatinine Ratio 17 (6-26); Blood Urea Nitrogen 33 mg/dL (8-23); Calcium 9.3 mg/dL (8.6-10.3); Carbon Dioxide 29 mEq/L (23-29); Chloride 102 mEq/L (98-107); Glucose 191 mg/dL (70-105); Osmolality,Calculated 300 (280-300); Potassium 3.4 mEq/L (3.5-5.1); Sodium 139 mEq/L (136-145); Troponin I < 0.03 ng/mL (< 0.04); eGFR For African Americans 41 (> 60); eGFR For Non-African Americans 34 (> 60)
[2020-06-22] MEDS ORDERED: *HR* OxyCODONE Immed Rel 5 MG TABLET PO PRN (17:37)
[2020-06-22] MEDS ORDERED: Naloxone 0.4 MG/ML INJ IVP PRN (17:37)
[2020-06-22] MEDS ORDERED: Acetaminophen 325 MG TABLET PO PRN (17:37)
[2020-06-22] MEDS ORDERED: D5% in Water 1,000 ML IVC PRN (17:51)
[2020-06-22] MEDS ORDERED: *HR* Dextrose 50 % in Water (Vial) 50 ML VIAL IVP PRN (17:51)
[2020-06-22] MEDS ORDERED: Dextrose Gel 15 GM/37.5 ML TUBE PO PRN ×2 (17:51)
[2020-06-22] MEDS ORDERED: Perflutren Lipid Microsphere 1.3 ML in 0.9 % Sodium Chloride 8.7 ML IVP PRN (17:55)
[2020-06-22] MEDS ORDERED: Nitroglycerin 0.4 MG TAB.SUBL SL PRN (17:56)
[2020-06-22] MEDS: amLODIPine 5 MG TABLET PO SCH (19:15)
[2020-06-22] MEDS: *HR* HYDROcodone/Acet 5/325 mg TABLET PO PRN (19:15)
[2020-06-22] MEDS: *HR* OxyCODONE Immed Rel 5 MG TABLET PO PRN (21:21)
[2020-06-22] MEDS: Insulin LISPRO 300 UNITS/3 ML VIAL SQ SCH (21:24)
[2020-06-23] MEDS: *HR* OxyCODONE Immed Rel 5 MG TABLET PO PRN ×4 (01:28→19:44)
[2020-06-23 03:34] LABS: ABG Base Excess 3 mEq/L (-2 to 3); ABG HCO3 28 mEq/L (21-27); ABG Oxygen Saturation 86 % (95-98); ABG PCO2 44 mmHg (35-45); ABG PH 7.41 pH Units (7.32-7.45); ABG PO2 51 mmHg (85-104); ABG TCO2 30 mEq/L (20-26)
[2020-06-23] MEDS: *HR* HYDROcodone/Acet 5/325 mg TABLET PO PRN (04:21)
[2020-06-23] MEDS ORDERED: *HR* Heparin 5,000 UNIT/ML VIAL SQ SCH (06:00)
[2020-06-23 06:31] LABS: Hematocrit 36.3 % (37.5-50.1); Hemoglobin 12.2 g/dL (12.9-16.9); Immature Platelets 5.8 % (1.1-6.1); Mean Corpuscular HGB Conc 33.6 g/dL (31.6-35.5); Mean Corpuscular Hemoglobin 31.7 pg (28.0-33.3); Mean Corpuscular Volume 94.3 fL (83.0-100.0); Mean Platelet Volume 11.5 fL (9.4-12.4); Red Blood Count 3.85 M/mcL (4.19-5.50); Red Cell Distribution Width 12.5 % (11.5-14.5); White Blood Count 7.7 K/mcL (4.3-11.1)
[2020-06-23 06:49] LABS: Albumin 3.6 g/dL (3.5-5.7); Albumin/Globulin Ratio 1.7 (1.1-2.2); Bilirubin,Direct 0.1 mg/dL (0.0-0.2); Bilirubin,Indirect 0.7 mg/dL (0.0-1.0); Bilirubin,Total 0.8 mg/dL (0.3-1.0); Calcium 8.7 mg/dL (8.6-10.3); Globulin 2.1 g/dL (2.4-3.5); Potassium 3.5 mEq/L (3.5-5.1); Total Protein 5.7 g/dL (6.4-8.9)
[2020-06-23] MEDS: Insulin LISPRO 300 UNITS/3 ML VIAL SQ SCH ×3 (07:48→17:43)
[2020-06-23] MEDS: amLODIPine 5 MG TABLET PO SCH ×2 (08:29→19:33)
[2020-06-23] MEDS ORDERED: Isosorbide MONOnitrate (24 HR) 30 MG TAB.ER.24H PO SCH (09:00)
[2020-06-23] MEDS ORDERED: Metoprolol XL (24 HR) Succ 50 MG TAB.ER.24H PO SCH (09:00)
[2020-06-23] MEDS ORDERED: Aspirin Enteric Coated 81 MG Tablet PO SCH (09:00)
[2020-06-23] MEDS ORDERED: Ketorolac 15 MG/ML VIAL IVP ONE ×2 (10:31→13:29)
[2020-06-23] MEDS ORDERED: *HR* OxyCODONE Immed Rel 5 MG TABLET PO PRN (10:31)
[2020-06-23] MEDS ORDERED: Ondansetron 4 MG/2 ML VIAL IVP ONE ×2 (10:31→13:29)
[2020-06-23] MEDS ORDERED: *HR* HYDROmorphone PF 0.5 MG/0.5 ML SYRINGE IVP PRN ×2 (10:31→13:29)
[2020-06-23] MEDS ORDERED: *HR* FentaNYL (PF) 100 MCG/2 ML VIAL ONE (10:39)
[2020-06-23] MEDS ORDERED: *HR* Propofol 200 MG/20 ML VIAL IVP ONE (10:40)
[2020-06-23] MEDS ORDERED: *HR* Succinylcholine 200 MG/10 ML VIAL IVP ONE (10:42)
[2020-06-23] MEDS ORDERED: Ondansetron 4 MG/2 ML VIAL ONE (10:42)
[2020-06-23] MEDS ORDERED: Lidocaine -MPF 2% 2 ML VIAL ONE (10:42)
[2020-06-23] MEDS ORDERED: Ringers Solution, Lactated 1,000 ML IVC SCH ×2 (10:45→13:29)
[2020-06-23] MEDS ORDERED: EPHEDrine 50 MG/ML VIAL ONE (10:47)
[2020-06-23] MEDS ORDERED: *HR* Vasopressin 20 UNIT/ML VIAL ONE (10:52)
[2020-06-23] MEDS ORDERED: ceFAZolin 2,000 MG in Water for inj. (sterile) 20 ML IVPB ONE (10:56)
[2020-06-23] MEDS ORDERED: Acetaminophen IV 1,000 MG/100 ML INFUS..BTL ONE (11:06)
[2020-06-23] MEDS ORDERED: D5% in Water 1,000 ML IVC PRN (13:29)
[2020-06-23] MEDS ORDERED: Naloxone 0.4 MG/ML INJ IVP PRN (13:29)
[2020-06-23] MEDS ORDERED: Dextrose Gel 15 GM/37.5 ML TUBE PO PRN ×2 (13:29)
[2020-06-23] MEDS ORDERED: Acetaminophen 325 MG TABLET PO PRN (13:29)
[2020-06-23] MEDS ORDERED: *HR* Dextrose 50 % in Water (Vial) 50 ML VIAL IVP PRN (13:29)
[2020-06-23] MEDS ORDERED: Nitroglycerin 0.4 MG TAB.SUBL SL PRN (13:29)
[2020-06-23] MEDS ORDERED: 0.9 % Sodium Chloride 1,000 ML IVC SCH (16:15)
[2020-06-23] MEDS: ceFAZolin 2,000 MG in 0.9 % Sodium Chloride 100 ML IVPB SCH (17:43)
[2020-06-23] MEDS: *HR* Heparin 5,000 UNIT/ML VIAL SQ SCH (17:43)
[2020-06-23] MEDS ORDERED: ceFAZolin 2,000 MG in 0.9 % Sodium Chloride 100 ML IVPB SCH (19:00)
[2020-06-23] MEDS ORDERED: Insulin LISPRO 300 UNITS/3 ML VIAL SQ SCH (21:00)
[2020-06-24] MEDS: ceFAZolin 2,000 MG in 0.9 % Sodium Chloride 100 ML IVPB SCH (02:48)
[2020-06-24] MEDS: *HR* HYDROcodone/Acet 5/325 mg TABLET PO PRN ×2 (02:56→09:54)
[2020-06-24] MEDS: *HR* Heparin 5,000 UNIT/ML VIAL SQ SCH (04:59)
[2020-06-24 06:40] LABS: Hematocrit 34.3 % (37.5-50.1); Hemoglobin 11.3 g/dL (12.9-16.9); Immature Platelets 8.3 % (1.1-6.1); Mean Corpuscular HGB Conc 32.9 g/dL (31.6-35.5); Mean Corpuscular Hemoglobin 32.1 pg (28.0-33.3); Mean Corpuscular Volume 97.4 fL (83.0-100.0); Mean Platelet Volume 11.9 fL (9.4-12.4); Red Blood Count 3.52 M/mcL (4.19-5.50); Red Cell Distribution Width 12.7 % (11.5-14.5); White Blood Count 9.1 K/mcL (4.3-11.1)
[2020-06-24 06:58] LABS: Calcium 8.6 mg/dL (8.6-10.3); Potassium 3.8 mEq/L (3.5-5.1)
[2020-06-24] MEDS ORDERED: LAMIVUDINE 100 MG PO SCH (09:00)
[2020-06-24] MEDS ORDERED: Isosorbide MONOnitrate (24 HR) 60 MG TAB.ER.24H PO SCH (09:00)
[2020-06-24] MEDS ORDERED: Aspirin Enteric Coated 81 MG Tablet PO SCH (09:00)
[2020-06-24] MEDS ORDERED: Metoprolol XL (24 HR) Succ 50 MG TAB.ER.24H PO SCH (09:00)
[2020-06-24] MEDS: amLODIPine 5 MG TABLET PO SCH (09:40)
[2020-06-24] MEDS: Insulin LISPRO 300 UNITS/3 ML VIAL SQ SCH (09:47)
[2020-06-24] MEDS: *HR* OxyCODONE Immed Rel 5 MG TABLET PO PRN ×2 (10:25→15:52)
[2020-06-24 14:50] VITALS: BP 137/59
== END 2020-06-24 17:40 | disposition home health service (06) | DRG 481 ==
LOC: EMEROOARM 15:39 → 3NENU 15:39
PROVIDERS: ADMIT Internal Medicine; ATTEND Internal Medicine

== ENCOUNTER 2020-09-28 08:31 | Inpatient (IN) ==
[2020-09-28] MEDS: 0.9 % Sodium Chloride 1,000 ML IVC SCH (09:14)
[2020-09-28] MEDS ORDERED: Ondansetron 4 MG/2 ML VIAL IVP PRN (09:57)
[2020-09-28] MEDS ORDERED: *HR* FentaNYL (PF) 100 MCG/2 ML VIAL IVP PRN (09:57)
[2020-09-28] MEDS ORDERED: *HR* OxyCODONE Immed Rel 5 MG TABLET PO PRN (09:57)
[2020-09-28] MEDS ORDERED: Promethazine 6.25 MG in Water for inj. (sterile) 20 ML IVPB PRN (09:57)
[2020-09-28] MEDS ORDERED: *HR* Metoprolol 5 MG/5 ML VIAL IVP PRN (09:57)
[2020-09-28] MEDS ORDERED: *HR* Heparin 10,000 UNIT/10 ML VIAL ONE (11:04)
[2020-09-28] MEDS ORDERED: Heparin 1,000 UNITS/500 mL 2,000 ML ONE (11:04)
[2020-09-28] MEDS ORDERED: Protamine Sulfate 50 MG/5 ML VIAL IVP ONE (11:04)
[2020-09-28] MEDS ORDERED: ISOVUE-370 200 ML INFUS..BTL ONE (11:05)
[2020-09-28] MEDS ORDERED: 0.9 % Sodium Chloride 1,000 ML ONE ×2 (11:05→12:47)
[2020-09-28] MEDS ORDERED: *HR* FentaNYL (PF) 100 MCG/2 ML VIAL ONE (11:24)
[2020-09-28] MEDS ORDERED: Perflutren Lipid Microsphere 1.3 ML in 0.9 % Sodium Chloride 8.7 ML IVP PRN (13:12)
[2020-09-28] MEDS ORDERED: Nitroglycerin 0.4 MG TAB.SUBL SL PRN (13:14)
[2020-09-28] MEDS ORDERED: *HR* Succinylcholine 200 MG/10 ML VIAL IVP ONE (16:04)
[2020-09-28] MEDS ORDERED: Lidocaine -MPF 4% 5 ML AMPUL TP ONE (16:04)
[2020-09-28] MEDS ORDERED: Lidocaine -MPF 2% 5 ML VIAL SQ ONE (16:04)
[2020-09-28] MEDS ORDERED: EPHEDrine 50 MG/ML VIAL IVP ONE (16:04)
[2020-09-28] MEDS ORDERED: Ondansetron 4 MG/2 ML VIAL IVP ONE (16:04)
[2020-09-28] MEDS ORDERED: *HR* Propofol 200 MG/20 ML VIAL IVP ONE (16:04)
[2020-09-28] MEDS ORDERED: *HR* Rocuronium Bromide 50 MG/5 ML VIAL IVP ONE (16:04)
[2020-09-28] MEDS: Furosemide 40 MG TABLET PO SCH (17:01)
[2020-09-28] MEDS: Apixaban 5 MG TABLET PO SCH (20:18)
[2020-09-28] MEDS: amLODIPine 5 MG TABLET PO SCH (20:18)
[2020-09-29 04:45] LABS: Immature Granulocytes % 0.3 % (0-4); Mean Corpuscular Hemoglobin 31.6 pg (28.0-33.3)
[2020-09-29 04:47] LABS: Hematocrit 33.8 % (37.5-50.1); Hemoglobin 11.3 g/dL (12.9-16.9); Lymphocytes # 0.7 K/mcL (0.6-4.6); Lymphocytes % 10.1 %; Mean Corpuscular HGB Conc 33.4 g/dL (31.6-35.5); Mean Corpuscular Volume 94.4 fL (83.0-100.0); Mean Platelet Volume 11.3 fL (9.4-12.4); Monocytes # 0.1 K/mcL (0.0-1.3); Monocytes % 1.8 %; Neutrophils # 5.7 K/mcL (1.6-8.9); Nucleated Red Blood Cells 0.3 /100 WBC (0); Platelet Count 110 K/mcL (140-400); Red Blood Count 3.58 M/mcL (4.19-5.50); Red Cell Distribution Width 12.5 % (11.5-14.5); Segmented Neutrophils % 87.8 %; White Blood Count 6.5 K/mcL (4.3-11.1)
[2020-09-29 04:53] LABS: INR 1.6; Prothrombin Time 17.9 Seconds (9.4-12.1)
[2020-09-29 05:05] LABS: Calcium 8.7 mg/dL (8.6-10.3); Potassium 4.2 mEq/L (3.5-5.1)
[2020-09-29 05:06] LABS: Platelet Estimate Slight Decrease (Normal)
[2020-09-29] MEDS: 0.9 % Sodium Chloride 1,000 ML IVC SCH (05:10)
[2020-09-29] MEDS: Furosemide 40 MG TABLET PO SCH (07:08)
[2020-09-29] MEDS: amLODIPine 5 MG TABLET PO SCH (07:09)
[2020-09-29] MEDS: Apixaban 5 MG TABLET PO SCH (07:09)
[2020-09-29] MEDS ORDERED: Albumin Human 5% 50.0 GM/1,000 ML IV.SOLN ONE (08:33)
[2020-09-29] MEDS ORDERED: LAMIVUDINE 100 MG PO SCH (09:00)
[2020-09-29] MEDS ORDERED: Metoprolol XL (24 HR) Succ 50 MG TAB.ER.24H PO SCH (09:00)
[2020-09-29] MEDS ORDERED: Isosorbide MONOnitrate (24 HR) 30 MG TAB.ER.24H PO SCH (09:00)
[2020-09-29] MEDS ORDERED: Multivit/Ca/Min/Fe/FA 1 TAB TABLET PO SCH (09:00)
[2020-09-29] MEDS ORDERED: *HR* Glimepiride 4 MG TABLET PO SCH (09:00)
[2020-09-29] MEDS ORDERED: FLU Vac QV 20-21 (6Month+)/PF 0.5 ML SYRINGE IM ONE (09:35)
[2020-09-29 11:02] VITALS: BP 135/60
== END 2020-09-29 16:05 | disposition home or self-care (01) | DRG 274 ==
LOC: INVDIALAB 08:31 → ICNU 14:19
PROVIDERS: ADMIT Internal Medicine Cardiovascular Disease; ATTEND Internal Medicine Cardiovascular Disease

== ENCOUNTER 2021-06-19 10:31 | Observation (INO) ==
[2021-06-19] MEDS ORDERED: Ondansetron 4 MG/2 ML VIAL IVP ONE (13:35)
[2021-06-19] MEDS ORDERED: *HR* HYDROmorphone 2 MG/ML SYRINGE IVP ONE (13:35)
[2021-06-19] MEDS ORDERED: Naloxone 0.4 MG/ML INJ IVP PRN (14:48)
[2021-06-19] MEDS ORDERED: Acetaminophen 325 MG TABLET PO PRN (14:48)
[2021-06-19] MEDS ORDERED: Ondansetron 4 MG/2 ML VIAL IVP PRN (14:48)
[2021-06-19] MEDS ORDERED: Melatonin 3 MG TABLET PO PRN (14:48)
[2021-06-19] MEDS ORDERED: Dextrose Gel 15 GM/37.5 ML TUBE PO PRN ×2 (15:17)
[2021-06-19] MEDS ORDERED: *HR* Dextrose 50 % in Water (Vial) 50 ML VIAL IVP PRN (15:17)
[2021-06-19] MEDS ORDERED: D5% in Water 1,000 ML IVC PRN (15:17)
[2021-06-19 15:53] LABS: Basophils % 0.2 %; Eosinophils # 0.1 K/mcL (0.0-0.6); Eosinophils % 2.2 %; Hematocrit 35.6 % (37.5-50.1); Hemoglobin 12.3 g/dL (12.9-16.9); Immature Granulocytes % 0.2 % (0-4); Immature Platelets 5.9 % (1.1-6.1); Lymphocytes # 1.6 K/mcL (0.6-4.6); Lymphocytes % 29.5 %; Mean Corpuscular HGB Conc 34.6 g/dL (31.6-35.5); Mean Corpuscular Volume 95.4 fL (83.0-100.0); Mean Platelet Volume 10.8 fL (9.4-12.4); Monocytes # 0.4 K/mcL (0.0-1.3); Monocytes % 7.3 %; Neutrophils # 3.3 K/mcL (1.6-8.9); Platelet Count 114 K/mcL (140-400); Red Blood Count 3.73 M/mcL (4.19-5.50); Red Cell Distribution Width 12.6 % (11.5-14.5); Segmented Neutrophils % 60.6 %; White Blood Count 5.4 K/mcL (4.3-11.1)
[2021-06-19 15:54] LABS: INR 1.1; Prothrombin Time 12.2 Seconds (9.4-12.1)
[2021-06-19 16:05] LABS: Estimated Average Glucose 148 mg/dl; Hemoglobin A1C 6.8 %
[2021-06-19 16:11] LABS: Alanine Aminotransferase 32 Units/L (7-52); Albumin 4.1 g/dL (3.5-5.7); Albumin/Globulin Ratio 1.7 (1.1-2.2); Alkaline Phosphatase 50 Units/L (34-104); Aspartate Amino Transferase 32 Units/L (13-39); BUN/Creatinine Ratio 19 (6-26); Bilirubin,Total 0.6 mg/dL (0.3-1.0); Blood Urea Nitrogen 29 mg/dL (8-23); Carbon Dioxide 27 mEq/L (23-29); Chloride 104 mEq/L (98-107); Globulin 2.4 g/dL (2.4-3.5); Glucose 132 mg/dL (70-105); Osmolality,Calculated 298 (280-300); Potassium 3.5 mEq/L (3.5-5.1); Sodium 140 mEq/L (136-145); Total Protein 6.5 g/dL (6.4-8.9); Troponin I < 0.03 ng/mL (< 0.04); eGFR For African Americans 53 (> 60); eGFR For Non-African Americans 44 (> 60)
[2021-06-19] MEDS: Insulin LISPRO 300 UNITS/3 ML VIAL SUBQ SCH (16:34)
[2021-06-19] MEDS: *HR* HYDROcodone/Acet 5/325 mg TABLET PO PRN (20:39)
[2021-06-20] MEDS: *HR* OxyCODONE Immed Rel 5 MG TABLET PO PRN ×4 (02:15→21:38)
[2021-06-20 03:06] LABS: Hemoglobin 11.9 g/dL (12.9-16.9); Immature Granulocytes % 0.2 % (0-4); Mean Corpuscular Volume 95.8 fL (83.0-100.0); Mean Platelet Volume 11.3 fL (9.4-12.4)
[2021-06-20 03:08] LABS: Basophils % 0.2 %; Eosinophils # 0.1 K/mcL (0.0-0.6); Eosinophils % 3.1 %; Hematocrit 34.2 % (37.5-50.1); Immature Platelets 4.9 % (1.1-6.1); Lymphocytes # 1.5 K/mcL (0.6-4.6); Lymphocytes % 32.5 %; Mean Corpuscular HGB Conc 34.8 g/dL (31.6-35.5); Mean Corpuscular Hemoglobin 33.3 pg (28.0-33.3); Monocytes # 0.4 K/mcL (0.0-1.3); Monocytes % 7.7 %; Neutrophils # 2.6 K/mcL (1.6-8.9); Platelet Count 112 K/mcL (140-400); Red Blood Count 3.57 M/mcL (4.19-5.50); Red Cell Distribution Width 12.4 % (11.5-14.5); Segmented Neutrophils % 56.3 %; White Blood Count 4.6 K/mcL (4.3-11.1)
[2021-06-20 03:14] LABS: INR 1.1; Prothrombin Time 12.4 Seconds (9.4-12.1)
[2021-06-20 03:23] LABS: Calcium 8.7 mg/dL (8.6-10.3); Phosphorous 3.5 mg/dL (2.7-4.5); Potassium 3.8 mEq/L (3.5-5.1)
[2021-06-20] MEDS: *HR* HYDROcodone/Acet 5/325 mg TABLET PO PRN (06:52)
[2021-06-20] MEDS: Insulin LISPRO 300 UNITS/3 ML VIAL SUBQ SCH ×3 (08:08→15:30)
[2021-06-20] MEDS: amLODIPine 5 MG TABLET PO SCH (21:37)
[2021-06-20] MEDS: Furosemide 40 MG TABLET PO SCH (21:37)
[2021-06-21] MEDS: *HR* OxyCODONE Immed Rel 5 MG TABLET PO PRN ×2 (01:51→11:57)
[2021-06-21] MEDS: Insulin LISPRO 300 UNITS/3 ML VIAL SUBQ SCH ×2 (08:58→13:05)
[2021-06-21] MEDS: amLODIPine 5 MG TABLET PO SCH (08:59)
[2021-06-21] MEDS ORDERED: Metoprolol XL (24 HR) Succ 50 MG TAB.ER.24H PO SCH (09:00)
[2021-06-21] MEDS ORDERED: Isosorbide MONOnitrate (24 HR) 60 MG TAB.ER.24H PO SCH (09:00)
[2021-06-21] MEDS: Furosemide 40 MG TABLET PO SCH (09:00)
[2021-06-21] MEDS ORDERED: Aspirin 325 MG TABLET PO SCH (09:00)
[2021-06-21] MEDS ORDERED: predniSONE 20 MG TABLET PO SCH (10:30)
[2021-06-21 11:42] VITALS: BP 118/54; PULSE 67; TEMP 99.3; O2SAT 99
== END 2021-06-21 14:44 | disposition home or self-care (01) ==
LOC: EMEROOARM 10:31 → 3BNU 10:31 → SUATTDRO 13:12 → 3BNU 14:09
PROVIDERS: ADMIT Internal Medicine; ATTEND Internal Medicine